=== PATIENT | male | born 1995 | race Caucasian/White ===

== ENCOUNTER 2018-01-29 10:14 | Emergency (ER) | payer OTHER ==
--- OUTSIDE RECORDS SUMMARY | 2018-01-29 10:16 | XMS REPORT | Clinical Summary ---
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 Outside Orders Central Scheduling Frank Ceballos MD convulsive epilepsy (HCC) (Primary Dx) after 01/28/2017 Social History Tobacco Use Types Packs/Day Years Used Date Never Assessed Sex Assigned at Date Recorded Not on file Last Filed Vital Signs Not on file Plan of Treatment Not on file Results EEG Awake & Drowsy (09/21/2017 9:45 AM) Specimen Performing Laboratory GE RIS Narrative DATE OF TEST: 09/21/17 DATE OF REPORT: 09/21/17 ACC: [id number] Start time: 9:06 Stop time: 9:37 ICD-10: R56.9 CPT Code: 77494 HISTORY: Mr Deutsch is a 22 y/o M with history of seizures MEDICATIONS: Keppra CONDITION OF REPORT: This is a digital EEG study, using the standard International 10-20 System for placement of 22 electrodes, including eye movement leads, and an EKG lead. DESCRIPTION OF RECORD: During the maximally alert state a 9-10 Hz posterior dominant rhythm was seen that was symmetric, reactive to eye opening and well regulated.More anteriorly, low voltage frontocentral beta predominated.Drowsiness was characterized by alpha attenuation and increased frontocentral theta. No sleep spindles captured.There are two instances of brief, sharply-contoured left temporal slowing. SIGNIFICANT VIDEO EVENTS: None SIGNIFICANT ELECTROCARDIOGRAM EVENTS: None Hyperventilation: Adequate hyperventilation for 3 minutes is associated with a slight build up of slowing symmetrically. Photic stimulation: No abnormal waveforms elicited with stimulation from 3-30 Hz. IMPRESSION: Normal awake and drowsy EEG CLINICAL CORRELATION: An EEG without epileptiform discharges does not exclude the possibility of epilepsy.The intermittent left temporal slowing, seen twice, was too infrequent and ill-defined to be of diagnostic significance; consider repeat EEG. Cassie Garcia MD, PhD Neurophysiology Fellow Cabrera Negron M.D., JOSE Professor of Neurology Director, [facility], [place] [facility] [place] [facility], [place] [facility] Procedure Note Interface, External Ris In - 09/21/2017 3:42 PM CDT DATE OF TEST: 09/21/17 DATE OF REPORT: 09/21/17 ACC: [id number] Start time: 9:06 Stop time: 9:37 ICD-10: R56.9 CPT Code: 31138 HISTORY: Mr Deutsch is a 22 y/o M with history of seizures MEDICATIONS: Keppra CONDITION OF REPORT: This is a digital EEG study, using the standard International 10-20 System for placement of 22 electrodes, including eye movement leads, and an EKG lead. DESCRIPTION OF RECORD: During the maximally alert state a 9-10 Hz posterior dominant rhythm was seen that was symmetric, reactive to eye opening and well regulated. More anteriorly, low voltage frontocentral beta predominated. Drowsiness was characterized by alpha attenuation and increased frontocentral theta. No sleep spindles captured. There are two instances of brief, sharply-contoured left temporal slowing. SIGNIFICANT VIDEO EVENTS: None SIGNIFICANT ELECTROCARDIOGRAM EVENTS: None Hyperventilation: Adequate hyperventilation for 3 minutes is associated with a slight build up of slowing symmetrically. Photic stimulation: No abnormal waveforms elicited with stimulation from 3-30 Hz. IMPRESSION: Normal awake and drowsy EEG CLINICAL CORRELATION: An EEG without epileptiform discharges does not exclude the possibility of epilepsy. The intermittent left temporal slowing, seen twice, was too infrequent and ill-defined to be of diagnostic significance; consider repeat EEG. Cassie Garcia MD, PhD Neurophysiology Fellow Cabrera Negron M.D., JOSE Professor of Neurology Director, [facility], [facility] after 01/28/2017
--- OUTSIDE RECORDS SUMMARY | 2018-01-29 10:16 | XMS REPORT ---
:1995 Author Organization [facility] Address [address] [place] [address] Care Team Providers Name Role Phone Unavailable Unavailable Unavailable Problems This patient has no known problems. Allergies, Adverse Reactions, Alerts This patient has no known allergies or adverse reactions. Medications This patient has no known medications. Results Test Description Test Time Test Comments Text Results Atomic Results Result Comments EEG AWAKE AND 2017-09-21 Reason for DATE OF TEST: 09/21/17 DATE DROWSY 15:42:00 exam:->Generalized OF REPORT: 09/21/17 ACC: convulsive epilepsy [id number] Start time: 9:06 Stop time: 9:37 ICD-10: R56.9 CPT Code: 65033 HISTORY: Mr Hart is a 22 y/o M with history [...] Cassie Garcia MD, PhD Neurophysiology Fellow Cabrera Dunn M.D., [facility] Professor of Neurology Director, [facility] [place] [facility], [facility]
[2018-01-29 10:59] LABS: Absolute Monocytes 0.8 K/uL (0.1-1.3); Absolute Neutrophil 7.8 K/uL (1.8-8.0); Basophils % 0.3 % (0-1.3); Eosinophils % 0.6 % (0-4.4); Hematocrit 48.1 % (39.6-49.0); Lymphocytes % 10.6 % (15.3-44.8); MCH 28.6 pg (27.0-35.0); MCV 82.5 fL (80-100); MPV 9.8 fL (7.6-11.3); Monocytes % 7.9 % (3.3-12.3); RBC Red Blood Cell Count 5.83 M/uL (4.33-5.43)
[2018-01-29] MEDS ORDERED: levETIRAcetam 500 MG TAB ONE (10:59)
[2018-01-29 11:07] LABS: Protime INR 1.01
--- NOTE | 2018-01-29 11:10 | RAD REPORT ---
EXAM DESCRIPTION: CT - CTHCSPWOC - 01/29/2018 10:55 am CLINICAL HISTORY: Seizure, fall, head injury, neck injury COMPARISON: None. TECHNIQUE: Axial 5 mm thick images of the head were obtained. Axial 2 mm thick images of the cervic al spine were obtained with sagittal and coronal reconstruction images generated and reviewed. All CT scans are performed using dose optimization technique as appropriate and may include automated exposure control or mA/KV adjustment according to patient size. FINDINGS: No intracranial hemorrhage, mass, edema or acute intracranial finding. No suspicion for acute infarct ion. No extra-axial fluid collections. Mastoid air cells are clear. Mucosal thickening with air-fluid levels in the maxillary sinuses. Remaining paranasal sinuses are clear. No globe or orbit abnormalit y seen. Cervical body height and alignment are normal. No disk space narrowing. No fracture or acute bony abn ormality. No paraspinal mass or hematoma. IMPRESSION: Negative CT head examination for acute or significant finding. Negative CT cervical spine examination for acute or significant finding. Bilateral maxillary sinusitis
[2018-01-29 11:23] LABS: ALT/SGPT 23 U/L (12-78); AST/SGOT 17 U/L (15-37); Albumin 3.8 g/dL (3.4-5.0); Alkaline Phosphatase 113 U/L (45-117); BUN Blood Urea Nitrogen 16 mg/dL (7-18); Bicarbonate 28 mmol/L (21-32); Bilirubin Direct < 0.1 mg/dL (0-0.2); Bilirubin Total 0.2 mg/dL (0.2-1.0); Glucose Level 105 mg/dL (74-106); Potassium 3.6 mmol/L (3.5-5.1); Protein, Total 7.6 g/dL (6.4-8.2); Sodium Level 142 mmol/L (136-145)
[2018-01-29] MEDS ORDERED: NA CHLORIDE 0.9% 1,000 ML ONE (14:23)
[2018-01-29 14:26] LABS: Barbiturates NEGATIVE (NEGATIVE); Benzodiazepines NEGATIVE (NEGATIVE); Cocaine NEGATIVE (NEGATIVE); METHAMPHETAM NEGATIVE (NEGATIVE); Methadone NEGATIVE (NEGATIVE); Opiates NEGATIVE (NEGATIVE); Phencyclidine NEGATIVE (NEGATIVE); THC Cannibis NEGATIVE (NEGATIVE)
[2018-01-29] MEDS ORDERED: ACETAMINOPHEN 325 MG TABLET ONE (14:27)
[2018-01-29 15:16] LABS: Urine Blood TRACE (NEG); Urine Glucose NEGATIVE (NEG); Urine Protein NEGATIVE (NEG); Urine pH 5.5 (5.0-7.0)
--- NOTE | 2018-01-29 15:21 | EDPHYS ---
Physician Documentation [facility] Name: Jaxson Deutsch Age: 22 yrs Sex: Male : 1995 Arrival Date: 01/29/2018 Time: 10:18 Bed 4 Private MD: ED Physician Rupal Rios HPI: 01/29 10:42 This 22 yrs old Male presents to ER via EMS with complaints of Seizure. jmm 10:42 The patient presents with a history of multiple seizures, a total of 2. Character of jmm seizure(s): Loss of consciousness: the patient experienced loss of consciousness, Motor activity: generalized, Incontinence: none, Apnea: the patient did not experience apnea, Circulation: the patient did not experience evidence of pulse disturbance. Seizure onset: this morning. This is a 22 year old male with a history of epilepsy that presents to the ED post ictal after a generalized seizure which occurred at approx 0900 according to the mother. The patient had a partial motor seizure yesterday which the patient recovered from easily according to the mother. Patient recently d/c keppra and is currently taking lamictal. Historical: - Allergies: 10:21 No Known Allergies; jl7 - Home Meds: 10:21 Lamictal Oral [Active]; jl7 - PMHx: 10:21 Seizures; jl7 - PSHx: 10:21 None; jl7 - Immunization history:: Adult Immunizations unknown. - Social history:: Smoking status: Patient/guardian denies using tobacco. - Ebola Screening: : No symptoms or risks identified at this time. ROS: 10:42 Constitutional: Negative for fever, chills, and weight loss, Cardiovascular: Negative jmm for chest pain, palpitations, and edema, Respiratory: Negative for shortness of breath, cough, wheezing, and pleuritic chest pain, Abdomen/GI: Negative for abdominal pain, nausea, vomiting, diarrhea, and constipation. 10:42 Neuro: Positive for seizure activity. 10:42 All other systems are negative. Exam: 10:42 Head/Face: atraumatic. Chest/axilla: Normal chest wall appearance and motion. jmm Cardiovascular: Regular rate and rhythm. No edema appreciated Respiratory: Normal respirations, no respiratory distress appreciated Abdomen/GI: Non distended, soft 10:42 Constitutional: The patient appears in no acute distress, alert, awake. 10:42 Skin: Appearance: Color: normal in color. 10:42 Neuro: post ictal in appearance. Vital Signs: 10:21 BP 144 / 108; Pulse 100; Resp 12; Pulse Ox 100% ; Pain 4/10; jl7 10:28 Temp 97.7(O); jl7 11:00 BP 139 / 97; Pulse 86; Resp 18 S; Pulse Ox 100% on R/A; jl7 11:30 BP 141 / 86; Pulse 78; Resp 16 S; Pulse Ox 100% on R/A; jl7 12:00 BP 142 / 98; Pulse 98; Resp 16 S; Pulse Ox 100% on R/A; jl7 12:30 BP 135 / 93; Pulse 90; Resp 16 S; Pulse Ox 100% on R/A; jl7 13:30 BP 132 / 97; Pulse 87; Resp 16 S; Pulse Ox 100% on R/A; jl7 14:51 BP 136 / 91; Pulse 92; Resp 16 S; Pulse Ox 100% on R/A; jl7 [place] Coma Score: 10:21 Eye Response: spontaneous(4). Verbal Response: oriented(5). Motor Response: obeys jl7 commands(6). Total: 15. MDM: 10:32 Patient medically screened. [facility] 15:18 Data reviewed: vital signs, nurses notes. Data interpreted: Pulse oximetry: on room air [facility] is 100 %. Interpretation: normal. ED course: I discussed the patient with Dr. Oliva whom advises to increased dose of lamictal to 150 mg at night and 100 mg during the day for 1 week then to increased to 150 mg BID. Patient is alert, non toxic in appearance, and at baseline on discharge. Given return precautions. Understood and agrees with the plan of care. . 01/29 10:39 Order name: Acetaminophen; Complete Time: 11:30 [facility] 01/29 10:39 Order name: Basic Metabolic Panel; Complete Time: 11:30 [facility] 01/29 10:39 Order name: CBC with Diff; Complete Time: 11:07 [facility] 01/29 10:39 Order name: ETOH Level; Complete Time: 11:30 [facility] 01/29 10:39 Order name: Hepatic Function; Complete Time: 11:30 [facility] 01/29 10:39 Order name: PT-INR; Complete Time: 11:18 [facility] 01/29 10:39 Order name: Ptt, Activated; Complete Time: 11:18 [facility] 01/29 10:39 Order name: Salicylate; Complete Time: 11:30 [facility] 01/29 10:39 Order name: Urine Drug Screen; Complete Time: 14:35 [facility] 01/29 10:39 Order name: CT Head C Spine; Complete Time: 11:18 [facility] 01/29 14:11 Order name: Urine Dipstick--Ancillary (enter results); Complete Time: 15:17 01/29 10:39 Order name: EKG; Complete Time: 10:39 [facility] 01/29 10:39 Order name: EKG - Nurse/Tech; Complete Time: 14:17 [facility] 01/29 10:39 Order name: IV Saline Lock; Complete Time: 14:17 [facility] 01/29 10:39 Order name: Labs collected and sent; Complete Time: 14:17 [facility] 01/29 10:39 Order name: Urine Dipstick-Ancillary (obtain specimen); Complete Time: 14:17 [facility] Administered Medications: 11:45 Drug: Keppra 1000 mg Route: PO; [facility] 14:43 Follow up: Response: No adverse reaction 7 14:30 Drug: NS 0.9% 1000 ml Route: IV; Rate: 1 bolus; Site: left antecubital; jl7 15:15 Follow up: IV Status: Completed infusion jl7 14:35 Drug: Tylenol 650 mg Route: PO; jl7 15:00 Follow up: Response: No adverse reaction; Pain is decreased jl7 Disposition: 18:18 Co-signature as Attending Physician, Rupal Rios MD. ca2 Disposition: 01/29/18 15:20 Discharged to Home. Impression: Epilepsy and recurrent seizures. - Condition is Stable. - Discharge Instructions: Epilepsy. - Prescriptions for Klonopin 1 mg Oral Tablet - take 1 tablet by ORAL route every 12 hours As needed; 20 tablet. - Medication Reconciliation Form, Thank You Letter, Antibiotic Education, Prescription Opioid Use form. - Follow up: Private Physician; When: 2 - 3 days; Reason: Recheck today's complaints, Continuance of care, Re-evaluation by your physician. - Notes: PLEASE INCREASE DOSE OF LAMICTAL TO - 100 MG IN THE MORNING AND 150 MG AT NIGHT FOR 1 WEEK - THEN INCREASE DOSE TO 150 MG TWICE A DAY - YOU CAN ADMINISTER KLONPIN IF THE PATIENT HAS A SEIZURE LONGER THAN 3 MINUTES. Signatures: Dispatcher [employer] Kin Walls PA PA jmm Leal, Jahala, RN RN jl7 Rupal Rios MD MD ma2 Corrections: (The following items were deleted from the chart) 15:37 15:20 01/29/2018 15:20 Discharged to Home. Impression: Epilepsy and recurrent seizures. jl7 Condition is Stable. Forms are Medication Reconciliation Form, Thank You Letter, Antibiotic Education, Prescription Opioid Use. Follow up: Private Physician; When: 2 - 3 days; Reason: Recheck today's complaints, Continuance of care, Re-evaluation by your physician. yolie
--- NOTE | 2018-01-29 15:21 | ER ---
Nurse's Notes [facility] Name: Jaxson Deutsch Age: 22 yrs Sex: Male : 1995 Arrival Date: 01/29/2018 Time: 10:18 Bed 4 Private MD: Diagnosis: Epilepsy and recurrent seizures Presentation: 01/29 10:18 Presenting complaint: EMS states: Pt sitting down eating breakfast, had a seizure, fell jl7 and hit the back of his head. Transition of care: patient was not received from another setting of care. Onset of symptoms was January 29, 2018. Risk Assessment: Do you want to hurt yourself or someone else? Patient reports no desire to harm self or others. Initial Sepsis Screen: Does the patient meet any 2 criteria? No. Patient's initial sepsis screen is negative. Does the patient have a suspected source of infection? No. Patient's initial sepsis screen is negative. Care prior to arrival: IV initiated. 20 GA, in the left antecubital area. 10:18 Method Of Arrival: EMS: [facility] 10:18 Acuity: JOLIE 3 jl7 Triage Assessment: 10:21 General: Appears in no apparent distress. uncomfortable, Behavior is cooperative, jl7 drowsy. Pain: Complains of pain in occipital area. EENT: No signs and/or symptoms were reported regarding the EENT system. Neuro: Level of Consciousness is awake, alert, obeys commands, Oriented to person, place, time, situation. Cardiovascular: Patient's skin is warm and dry. Respiratory: Airway is patent Respiratory effort is even, unlabored, Respiratory pattern is regular, symmetrical. Derm: Skin is pink, warm \T\ dry. Historical: - Allergies: 10:21 No Known Allergies; jl7 - Home Meds: 10:21 Lamictal Oral [Active]; jl7 - PMHx: 10:21 Seizures; jl7 - PSHx: 10:21 None; jl7 - Immunization history:: Adult Immunizations unknown. - Social history:: Smoking status: Patient/guardian denies using tobacco. - Ebola Screening: : No symptoms or risks identified at this time. Screenin:23 Abuse screen: Denies threats or abuse. Denies injuries from another. Nutritional jl7 screening: No deficits noted. Tuberculosis screening: No symptoms or risk factors identified. Fall Risk Secondary diagnosis (15 points) seizures, IV access (20 points). Total Patel Fall Scale indicates Low Risk Score (25-44 pts). Fall prevention measures have been instituted. Side Rails Up X 2 Placed close to Nursing Station Frequent Obs/Assesments occuring Family Present and informed to notify staff if they need to leave bedside As available Patient and Family Educated on Fall Prevention Program and strategies. Assessment: 10:23 General: See triage assessment. Pt reports changing seizure medications approximately 2 jl7 weeks ago. Mom reports possible absence seizures last night.. 11:30 Reassessment: Patient and/or family updated on plan of care and expected duration. Pain jl7 level reassessed. Patient is alert, oriented x 3, equal unlabored respirations, skin warm/dry/pink. 12:30 Reassessment: Patient and/or family updated on plan of care and expected duration. Pain jl7 level reassessed. Patient is alert, oriented x 3, equal unlabored respirations, skin warm/dry/pink. 13:30 Reassessment: Patient and/or family updated on plan of care and expected duration. Pain jl7 level reassessed. Patient is alert, oriented x 3, equal unlabored respirations, skin warm/dry/pink. 14:28 Reassessment: Patient appears in no apparent distress at this time. Patient and/or jl7 family updated on plan of care and expected duration. Pain level reassessed. Patient is alert, oriented x 3, equal unlabored respirations, skin warm/dry/pink. Patient states feeling better. Vital Signs: 10:21 BP 144 / 108; Pulse 100; Resp 12; Pulse Ox 100% ; Pain 4/10; jl7 10:28 Temp 97.7(O); jl7 11:00 BP 139 / 97; Pulse 86; Resp 18 S; Pulse Ox 100% on R/A; jl7 11:30 BP 141 / 86; Pulse 78; Resp 16 S; Pulse Ox 100% on R/A; jl7 12:00 BP 142 / 98; Pulse 98; Resp 16 S; Pulse Ox 100% on R/A; jl7 12:30 BP 135 / 93; Pulse 90; Resp 16 S; Pulse Ox 100% on R/A; jl7 13:30 BP 132 / 97; Pulse 87; Resp 16 S; Pulse Ox 100% on R/A; jl7 14:51 BP 136 / 91; Pulse 92; Resp 16 S; Pulse Ox 100% on R/A; jl7 [place] Coma Score: 10:21 Eye Response: spontaneous(4). Verbal Response: oriented(5). Motor Response: obeys jl7 commands(6). Total: 15. ED Course: 10:18 Patient arrived in ED. jl7 10:20 Triage completed. jl7 10:21 Kin Ambrosio PA is PHCP. [facility] 10:21 Rupal Rios MD is Attending Physician. m 10:21 Arm band placed on right wrist. jl7 10:23 Patient has correct armband on for positive identification. Placed in gown. Bed in low jl7 position. Call light in reach. Side rails up X 1. Seizure precautions initiated. cat wagon operator on. Pulse ox on. NIBP on. 10:23 Maintain EMS IV. Dressing intact. Good blood return noted. Site clean \T\ dry. Gauge \T\ jl 7 site: 20 left AC. 10:28 Tien Davidson RN is Primary Nurse. jl7 10:54 CT completed. Patient moved to CT via stretcher. Patient moved back from CT. cw1 10:55 CT Head C Spine In Process Unspecified. EDMS 14:16 sent to lab. Urine collected: clean catch specimen, clear. mb4 14:29 EKG done, by ED staff, reviewed by Kin VICENTE. jl7 15:36 No provider procedures requiring assistance completed. IV discontinued, intact, jl7 bleeding controlled, No redness/swelling at site. Pressure dressing applied. Administered Medications: 11:45 Drug: Keppra 1000 mg Route: PO; jl7 14:43 Follow up: Response: No adverse reaction jl7 14:30 Drug: NS 0.9% 1000 ml Route: IV; Rate: 1 bolus; Site: left antecubital; jl7 15:15 Follow up: IV Status: Completed infusion jl7 14:35 Drug: Tylenol 650 mg Route: PO; jl7 15:00 Follow up: Response: No adverse reaction; Pain is decreased jl7 Outcome: 15:20 Discharge ordered by . [facility] 15:36 Discharged to home ambulatory, with family. jl7 15:36 Condition: stable 15:36 Discharge instructions given to patient, family, Instructed on discharge instructions, follow up and referral plans. medication usage, Demonstrated understanding of instructions, follow-up care, medications, Prescriptions given X 1. 15:37 Patient left the ED. jl7 Signatures: Dispatcher [employer] EDKin Brooks PA PA jmm Woodley, Crystal cw1 Tien Davidson RN RN jl7 Jessika Varela mb4
--- NOTE | 2018-01-30 06:52 | EKG ---
Test Date: 2018-01-29 Test Time: 14:26:53 Educational Interpreter: ARIANNA MEASUREMENT RESULTS: Intervals: Rate: 92 LA: 122 QRSD: 96 QT: 370 QTc: 457 Bertrand: P: 75 LA: 122 QRS: 87 T: 62 INTERPRETIVE STATEMENTS: Normal sinus rhythm Normal ECG No previous ECG available for comparison Electronically Signed On 01-30-18 06:51:02 CDT by Shahab Marx
== END 2018-01-29 15:37 | disposition home or self-care (01) ==
LOC: ER 10:14
DX: G40.802 Other epilepsy, not intractable, without status epilepticus (principal)
CPT/HCPCS: 36415; 70450; 72125; 80048; 80076; 80307; 80320; 80329; 81003; 85025; 85610; 85730; 93005; 96360; 99285; J7030

== ENCOUNTER 2019-11-02 18:42 | Emergency (ER) | payer OTHER ==
--- OUTSIDE RECORDS SUMMARY | 2019-11-02 18:44 | XMS REPORT | Summary of Care ---
:1995 Author Organization [facility] Address [address] [place] [address] Care Team Providers Name Role Phone Edmundo Bearden MD Primary Care Provider Reason for Visit Reason Comments Assessment Encounter Details Date Type Department Care Team Description 09/05/2019 Telephone [facility] Pediatric and Marcellus Gill MD Assessment Adult Primary Care- [address] [place] [address] [place] [address] , [address] [place] [address] Allergies No Known Allergiesdocumented as of this encounter (statuses as of 09/05/2019) Medications Medication Sig Dispensed Refills Start Date End Date Status clonazePAM 1 mg tablet Take 1 mg by 0 Active mouth as needed (seizures). levETIRAcetam (KEPPRA) Take 375 mg by 0 Active 250 mg tablet mouth 2 (two) times daily. lamoTRIgine (LAMICTAL) Take 100 mg by 0 Active 100 mg tablet mouth daily. lamoTRIgine (LAMICTAL Take by mouth. 0 Active XR) 250 mg TR24 selenium sulfide 2.5 % Apply to 120 mL 5 03/28/2019 Active lotionIndications: area(s) as Tinea versicolor needed for Rash. atomoxetine (STRATTERA) Take 1 capsule 60 capsule 12 07/27/2019 Active 60 mg by mouth 2 (two) capsuleIndications: times daily. 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 documented as of this encounter Last Filed Vital Signs Not on filedocumented in this encounter Plan of Treatment Date Type Specialty Care Team Description 01/25/2020 Office Visit Family Medicine Suleiman, Marcellus stack MD [address] [place] [phone] Health Maintenance Due Date Last Done Comments VARICELLA VACCINES (1 of 2 - 2-dose 01/31/1997 childhood series) MENINGOCOCCAL B VACCINES (1 of 2 - 01/31/2006 Risk Bexsero 2-dose series) DTaP,Tdap,and Td Vaccines (1 - 01/31/2007 Tdap) INFLUENZA VACCINE (#1) 2019 HPV VACCINES Aged Out No longer eligib le based on patient's age to complete this topic PNEUMOCOCCAL 0-64 YEARS COMBINED Aged Out No longer eligible based on SERIES patient's age to complete this topic documented as of this encounter Results Not on filedocumented in this encounter Insurance Payer Benefit Plan / Subscriber ID Effective Dates Phone Addre ss Type Group [facility] [id number] 2019-Present O HMO documented as of this encounter
--- OUTSIDE RECORDS SUMMARY | 2019-11-02 18:44 | XMS REPORT | Summary of Care ---
:1995 Author Organization [facility] Address [address] [place] [address] Care Team Providers Name Role Phone Edmundo Bearden MD Primary Care Provider Reason for Visit Reason Comments Assessment Encounter Details Date Type Department Care Team Description 08/31/2019 Telephone [facility] Pediatric and Marcellus Gill MD Assessment Adult Primary Care- [address] [place] [address] [place] [address] , [address] [place] [address] Allergies No Known Allergiesdocumented as of this encounter (statuses as of 08/31/2019) Medications Medication Sig Dispensed Refills Start Date [...] as of this encounter (statuses as of 08/31/2019) Active Problems Problem Noted Date 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
--- OUTSIDE RECORDS SUMMARY | 2019-11-02 18:44 | XMS REPORT | Continuity of Care Document ---
:1995 Author Organization [facility] t Address [address] [place] [address] Care Team Providers Name Role Phone Suleiman RINCON, Edmundo Primary Care Physician Unavailable Edmundo Bearden MD Attending Clinician Doctor Unassigned, Name Attending Clinician Unavailable Problems This patient has no known problems. Allergies, Adverse Reactions, Alerts This patient has no known allergies or adverse reactions. Social History Social Habit Start Date Stop Date Quantity Comments Source Sex Assigned At [facility] Medications This patient has no known medications. Procedures This patient has no known procedures. Encounters Start End Encounter Admission Attending Care Care Encounter Source Date/Time Date/Time Type Type Clinicians Facility Department ID 2019-09-18 2019-09-18 [facility] [id number] 00:00:00 00:00:00 Marcellus Renee [id number] [place] [id number] Profkailash [phone] [address] 2019-09-17 2019-09-17 Telephone [facility] [id number] 00:00:00 00:00:00 Marcellus Renee [id number] [place] [id number] Anh [phone] [address] 2019-09-05 2019-09-05 Telephone [facility] [id number] 00:00:00 00:00:00 Marcellus Renee [id number] Edmundo Abbott [id number] Professio [phone] nal [address] [place] [address] 2019-08-31 2019-08-31 Telephone RISSA Bearden [id number] 00:00:00 00:00:00 Marcellus Renee [id number] Edmundo Abbott [id number] Professio [phone] [address] 2019-07-27 2019-07-27 Office RISSA Bearden [id number] 09:09:04 09:24:04 Visit [facility] [id number] Edmundo Renee [id number] Professio [phone] nal 044 Office [facility] 2019-07-27 2019-07-27 Orders Doctor TADEO [id number] 00:00:00 00:00:00 Only Unassigned, BALDO [id number] [facility] [phone] [id number] Results Test Description Test Time Test Comments Results Result [facility] e Comments EEG AWAKE AND 2017-09-21 Reason for DATE OF TEST: 09/21/17 DROWSY 15:42:00 exam:->Generaliz DATE OF REPORT: 09/21/17 ed convulsive ACC: [id number] EEG: epilepsy Start time: 9:06 Stop time: 9:37 ICD-10: R56.9 CPT Code: 34929 HISTORY: Mr Hart is a 22 y/o [...] MD, PhD Neurophysiology Fellow Cabrera Dunn M.D., [facility] Professor of Neurology Director, [facility] Epilepsy [place], [facility] Neurophysiology Lab
--- OUTSIDE RECORDS SUMMARY | 2019-11-02 18:44 | XMS REPORT | Clinical Summary ---
:1995 Author Organization [facility] Address [address] [place] [address] Care Team Providers Name Role Phone Edmundo Bearden MD Primary Care Provider Unavailable Allergies Not on File Medications Not on file Active Problems Not on file Social History Tobacco Use Types Packs/Day Years Used Date Never Assessed Sex Assigned at Date Recorded Not on file Job Start Date Occupation Industry Not on file Not on file Not on file Travel History Travel Start Travel End No recent travel history available. Last Filed Vital Signs Not on file Plan of Treatment Not on file Results Not on fileafter 11/01/2018 Insurance Payer Benefit Plan / Group Subscriber ID Type Phone A ddress [employer] - [employer]GD CARE AET[employer] PPO [facility] NAP xxxxxxxxx PPO
--- OUTSIDE RECORDS SUMMARY | 2019-11-02 18:45 | XMS REPORT | Summary of Care ---
:1995 Author Organization [facility] Address [address] [place] [address] Care Team Providers Name Role Phone Edmundo Bearden MD Primary Care Provider Reason for Visit Reason Comments Assessment Encounter Details Date Type Department Care Team Description 09/17/2019 Telephone [facility] Pediatric and Marcellus Gill MD Assessment Adult Primary Care- [address] [place] [address] [place] [address] , [address] [place] [address] Allergies No Known Allergiesdocumented as of this encounter (statuses as of 09/18/2019) Medications Medication Sig Dispensed Refills Start Date [...] as of this encounter (statuses as of 09/18/2019) Active Problems Problem Noted Date 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 Allergic rhinitis due to pollen 04/07/2015 Seizures, 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/2015 documented as of this encounter (statuses as of 09/18/2019) Social History Tobacco Use Types Packs/Day Years [...] Team Description 01/25/2020 Office Visit Family Medicine Marcellus Bearden MD [address] [place] [address] [phone] Health Maintenance Due Date Last Done Comments VARICELLA VACCINES (1 of 2 - 2-dose 01/31/1997 childhood series) MENINGOCOCCAL B VACCINES (1 of 2 - 01/31/2006 Risk Bexsero 2-dose series) DTaP,Tdap,and Td Vaccines (1 - 01/31/2007 Tdap) INFLUENZA VACCINE (Season Ended) 2020 HPV VACCINES Aged Out No longer eligib le based on patient's age to complete this topic PNEUMOCOCCAL 0-64 YEARS COMBINED Aged Out No longer eligible based on SERIES patient's age to complete this topic documented as of this encounter Results Not on filedocumented in this encounter Insurance Payer Benefit Plan / Subscriber ID Effective Dates Phone Addre ss Type Group [facility] [id number] 2019-Present O HMO documented as of this encounter
--- OUTSIDE RECORDS SUMMARY | 2019-11-02 18:45 | XMS REPORT | Summary of Care ---
:1995 Author Organization [facility] Address [address] [place] [address] Care Team Providers Name Role Phone Edmundo Bearden MD Primary Care Provider Reason for Visit Reason Comments Assessment Encounter Details Date Type Department Care Team Description 09/18/2019 Telephone [facility] Pediatric and Marcellus Gill MD Assessment Adult Primary Care- [address] [place] [address] [place] [address] , [address] [place] [address] Allergies No Known Allergiesdocumented as of [...] Office Visit Family Medicine Marcellus Bearden MD [address] [place] [address] [phone] Health Maintenance Due Date Last Done [...] Effective Dates Phone Addre ss Type Group [facility] [id number] 2019-Present O HMO documented as of this encounter
[2019-11-02] MEDS ORDERED: LEVETIRACETAM 500 MG/5 ML VIAL IV ONE (19:35)
[2019-11-02] MEDS ORDERED: NA CHLORIDE 0.9% 250 ML ONE (19:35)
[2019-11-02 19:53] LABS: Absolute Lymphocytes (CBC) 1.1 K/uL (0.7-4.9); Basophils % 0.2 % (0-1.3); Hematocrit 45.1 % (39.6-49.0); Lymphocytes % 11.6 % (15.3-44.8); RBC Red Blood Cell Count 5.36 M/uL (4.33-5.43)
[2019-11-02 19:55] LABS: Protime INR 1.03
[2019-11-02 20:14] LABS: ALT/SGPT 30 U/L (12-78); AST/SGOT 19 U/L (15-37); Albumin 3.9 g/dL (3.4-5.0); Alkaline Phosphatase 98 U/L (45-117); BUN Blood Urea Nitrogen 12 mg/dL (7-18); Bicarbonate 28 mmol/L (21-32); Bilirubin Direct < 0.1 mg/dL (0-0.2); Bilirubin Total 0.4 mg/dL (0.2-1.0); CKMB Creatine Kinase MB 2.2 ng/mL (0.3-3.6); Creatine Phosphokinase 145 U/L (39-308); Glucose Level 117 mg/dL (74-106); Lipase 72 U/L (73-393); Magnesium 2.2 mg/dL (1.8-2.4); Protein, Total 7.4 g/dL (6.4-8.2); Sodium Level 138 mmol/L (136-145); Troponin (Emerg Dept Use Only) < 0.02 ng/mL (0.0-0.045)
[2019-11-02 21:07] LABS: Barbiturates NEGATIVE (NEGATIVE); Benzodiazepines NEGATIVE (NEGATIVE); Cocaine NEGATIVE (NEGATIVE); METHAMPHETAM NEGATIVE (NEGATIVE); Methadone NEGATIVE (NEGATIVE); Opiates NEGATIVE (NEGATIVE); Phencyclidine NEGATIVE (NEGATIVE); THC Cannibis NEGATIVE (NEGATIVE)
[2019-11-02 21:23] LABS: Urine Blood NEGATIVE (NEG); Urine Glucose NEGATIVE (NEG); Urine Protein 2+ (NEG); Urine Specific Gravity >1.030 (1.005-1.030); Urine pH 5.5 (5.0-7.0)
--- NOTE | 2019-11-02 22:23 | ER ---
Nurse's Notes [facility] Name: Jaxson Deutsch Age: 24 yrs Sex: Male : 1995 Arrival Date: 11/02/2019 Time: 18:45 Bed 3 Private MD: Diagnosis: Epilepsy and recurrent seizures Presentation: 11/01 18:45 Chief complaint: EMS states: Pt had witnessed seizure while at work, hx of seizures, ph last seizure approx 1 year ago, post-ictal on scene, 2 mg Ativan given IV, pt awake but drowsy upon arrival to ED, c/o headache, states that he did take his medication this morning, takes Keppra. Coronavirus screen: Patient denies a cough. Patient denies shortness of breath or difficulty breathing. Patient denies measured and/or subjective temperature greater than 100.4F prior to today's visit. Patient denies travel on a cruise ship or to a country the [facility] currently lists as an affected area. Patient denies contact with known and/or suspected case of COVID-19. Ebola Screen: No symptoms or risks identified at this time. Initial Sepsis Screen: Does the patient meet any 2 criteria? No. Patient's initial sepsis screen is negative. Does the patient have a suspected source of infection? No. Patient's initial sepsis screen is negative. Risk Assessment: Do you want to hurt yourself or someone else? Patient reports no desire to harm self or others. Onset of symptoms was November 02, 2019. 18:45 Method Of Arrival: EMS: [facility] ph 18:45 Acuity: JOLIE 3 ph Historical: - Allergies: 18:50 No Known Drug Allergies; ph - Home Meds: 18:50 Keppra Oral [Active]; ph - PMHx: 18:50 Seizures; ph - PSHx: 18:50 None; ph - Immunization history:: Adult Immunizations unknown. - Social history:: Smoking status: Patient denies any tobacco usage or history of. Screenin:51 Abuse screen: Denies threats or abuse. Denies injuries from another. Nutritional ph screening: No deficits noted. Tuberculosis screening: No symptoms or risk factors identified. Fall Risk Fall in past 12 months (25 points). Secondary diagnosis (15 points) seizures, IV access (20 points). Ambulatory Aid- None/Bed Rest/Nurse Assist (0 pts). Gait- Normal/Bed Rest/Wheelchair (0 pts) Mental Status- Oriented to own ability (0 pts). Total Patel Fall Scale indicates High Risk Score (45 or more points). Fall prevention measures have been instituted. Side Rails Up X 2 Placed Close to Nursing Station Frequent Obs/Assessments Occuring As available patient and family educated on Fall Prevention Program and Strategies. Assessment: 18:51 General: Appears in no apparent distress. comfortable, slender, well groomed, Behavior ph is calm, cooperative, appropriate for age. Pain: Complains of pain in head. Neuro: Level of Consciousness is awake, alert, obeys commands, Oriented to person, place, time, situation, Reports headache Seizure activity reported prior to arrival. Patient is post-ictal at this time. Cardiovascular: Capillary refill < 3 seconds in bilateral fingers Patient's skin is warm and dry. Respiratory: Airway is patent Respiratory effort is even, labored, Respiratory pattern is regular, symmetrical. GI: No signs and/or symptoms were reported involving the gastrointestinal system. Derm: Skin is intact, is fragile, Skin is pink, warm \T\ dry. Musculoskeletal: Circulation, motion, and sensation intact. Range of motion: intact in all extremities. 19:49 General: Appears in no apparent distress. comfortable, well groomed, Behavior is rr5 cooperative, appropriate for age, drowsy. Pain: Denies pain. Neuro: Level of Consciousness is awake, alert, obeys commands, Oriented to person, place, time, situation, Reports headache episode of seizure stated by infusion nurse. Cardiovascular: Capillary refill < 3 seconds Patient's skin is warm and dry. Respiratory: Airway is patent Respiratory effort is even, unlabored, Respiratory pattern is regular, symmetrical. GI: No signs and/or symptoms were reported involving the gastrointestinal system. : No signs and/or symptoms were reported regarding the genitourinary system. EENT: Eyes perrla. Derm: Skin is intact, is healthy with good turgor, Skin temperature is warm. Musculoskeletal: Circulation, motion, and sensation intact. Capillary refill < 3 seconds. 21:05 Reassessment: Patient appears in no apparent distress at this time. Patient is alert, rr5 oriented x 3, equal unlabored respirations, skin warm/dry/pink. drowsy, GCS 15/15. vitally stable. awaiting for results. 21:40 Reassessment: Patient appears in no apparent distress at this time. Patient is alert, rr5 oriented x 3, equal unlabored respirations, skin warm/dry/pink. tried to walk around the room patient feels dizzy and sleepy. 22:03 Reassessment: awaiting for ED provider review. rr5 22:17 Reassessment: reassess by ED provider for discharge. rr5 22:40 Reassessment: Patient appears in no apparent distress at this time. Patient is alert, rr5 oriented x 3, equal unlabored respirations, skin warm/dry/pink. discharge instruction given and explained without complaints made. Vital Signs: 18:45 BP 131 / 79; Pulse 98; Resp 18; Temp 97.3; Pulse Ox 99% on R/A; Weight 86.18 kg; Height ph 6 ft. 0 in. (182.88 cm); 19:52 BP 129 / 84; Pulse 105; Resp 16; Pulse Ox 99% ; rr5 20:50 BP 121 / 85; Pulse 95; Resp 17; Pulse Ox 99% ; rr5 21:45 BP 124 / 69; Pulse 86; Resp 13; Pulse Ox 99% on R/A; rv 22:40 BP 121 / 75; Pulse 80; Resp 16; Temp 98; Pulse Ox 99% ; rr5 18:45 Body Mass Index 25.77 (86.18 kg, 182.88 cm) ph ED Course: 18:45 Patient arrived in ED. ph 18:48 Triage completed. ph 18:50 Arm band placed on Patient placed in an exam room, on a stretcher, on pulse oximetry. ph 18:52 Patient has correct armband on for positive identification. Bed in low position. Call ph light in reach. Side rails up X2. Seizure precautions initiated. Pulse ox on. NIBP on. Warm blanket given. 19:04 Dom Carney MD is Attending Physician. tw4 19:13 Nabeel Arevalo RN is Primary Nurse. rr5 19:20 youth nutritional monitor on. rr5 19:20 Maintain EMS IV. Dressing intact. Good blood return noted. Site clean \T\ dry. Gauge \T\ rr 5 site: G20 left AC. 20:45 Urine collected: clean catch specimen, clear. rr5 22:22 Rufino Hui MD is Referral Physician. tw4 22:22 Mario Alberto Marsh MD is Referral Physician. tw4 22:40 No provider procedures requiring assistance completed. IV discontinued, intact, rr5 bleeding controlled, No redness/swelling at site. Pressure dressing applied. Administered Medications: 19:43 Drug: Keppra 1000 mg Route: IV; Rate: bolus; Site: left antecubital; rr5 20:07 Follow up: Response: No adverse reaction; IV Status: Completed infusion; IV Intake: rr5 250ml Intake: 20:07 IV: 250ml; Total: 250ml. rr5 Outcome: 22:23 Discharge ordered by . tw4 22:40 Discharged to home via wheelchair, with family. rr5 22:40 Condition: stable 22:40 Discharge instructions given to family, Instructed on discharge instructions, follow up and referral plans. Demonstrated understanding of instructions, follow-up care. 22:41 Patient left the ED. rr5 Signatures: Roxanne Zepeda RN RN Dom Chanel MD MD tw4 Eliud Matamoros RN RN Nabeel Lyn RN RN rr5
--- NOTE | 2019-11-02 22:23 | EDPHYS ---
Physician Documentation [facility] Name: Jaxson Deutsch Age: 24 yrs Sex: Male : 1995 Arrival Date: 11/02/2019 Time: 18:45 Bed 3 Private MD: ED Physician Dom Carney HPI: 11/01 20:14 This 24 yrs old Male presents to ER via EMS with complaints of Seizure. tw4 20:14 The patient presents after having a single isolated seizure, that lasted an unknown tw4 period of time. Character of seizure(s): Loss of consciousness: the patient experienced loss of consciousness, Motor activity: generalized, Incontinence: Apnea: it is not know whether or not the patient experienced apnea, Circulation: it is unknown whether or not the patient experienced a disturbance in pulse. Seizure onset: today. Context: the seizure(s) was witnessed, by co-worker(s), occurred at work. Seizure Hx: Original onset: 6 year(s) ago, Last seizure: The patient's last seizure was approximately 1 year(s) ago. Associated injury: The patient did not suffer any apparent associated injury. The patient has not experienced similar symptoms in the past. 20:14 Unable to obtain HPI due to POSTICTAL. HISTORY PER EMS AND MOTHER. PT RECEIVED ATIVAN tw4 [employer]. Historical: - Allergies: 18:50 No Known Drug Allergies; ph - Home Meds: 18:50 Keppra Oral [Active]; ph - PMHx: 18:50 Seizures; ph - PSHx: 18:50 None; ph - Immunization history:: Adult Immunizations unknown. - Social history:: Smoking status: Patient denies any tobacco usage or history of. ROS: 20:14 Constitutional: Negative for fever, chills, and weight loss, Eyes: Negative for injury, tw4 pain, redness, and discharge, Cardiovascular: Negative for chest pain, palpitations, and edema, Respiratory: Negative for shortness of breath, cough, wheezing, and pleuritic chest pain, Abdomen/GI: Negative for abdominal pain, nausea, vomiting, diarrhea, and constipation, Back: Negative for injury and pain, MS/Extremity: Negative for injury and deformity, Skin: Negative for injury, rash, and discoloration, Neuro: Negative for headache, weakness, numbness, tingling, and seizure. Exam: 20:14 Constitutional: This is a well developed, well nourished patient who is awake, alert, tw4 and in no acute distress. Head/Face: Normocephalic, atraumatic. Chest/axilla: Normal chest wall appearance and motion. Nontender with no deformity. No lesions are appreciated. Cardiovascular: Regular rate and rhythm with a normal S1 and S2. No gallops, murmurs, or rubs. Normal PMI, no JVD. No pulse deficits. Respiratory: Lungs have equal breath sounds bilaterally, clear to auscultation and percussion. No rales, rhonchi or wheezes noted. No increased work of breathing, no retractions or nasal flaring. Abdomen/GI: Soft, non-tender, with normal bowel sounds. No distension or tympany. No guarding or rebound. No evidence of tenderness throughout. Back: No spinal tenderness. No costovertebral tenderness. Full range of motion. MS/ Extremity: Pulses equal, no cyanosis. Neurovascular intact. Full, normal range of motion. Neuro: Awake and alert, GCS 15, oriented to person, place, time, and situation. Cranial nerves II-XII grossly intact. Motor strength 5/5 in all extremities. Sensory grossly intact. Cerebellar exam normal. Normal gait. Vital Signs: 18:45 BP 131 / 79; Pulse 98; Resp 18; Temp 97.3; Pulse Ox 99% on R/A; Weight 86.18 kg; Height ph 6 ft. 0 in. (182.88 cm); 19:52 BP 129 / 84; Pulse 105; Resp 16; Pulse Ox 99% ; rr5 20:50 BP 121 / 85; Pulse 95; Resp 17; Pulse Ox 99% ; rr5 21:45 BP 124 / 69; Pulse 86; Resp 13; Pulse Ox 99% on R/A; rv 22:40 BP 121 / 75; Pulse 80; Resp 16; Temp 98; Pulse Ox 99% ; rr5 18:45 Body Mass Index 25.77 (86.18 kg, 182.88 cm) ph MDM: 19:04 Patient medically screened. tw4 20:14 Data reviewed: vital signs, nurses notes. Data interpreted: Pulse oximetry: tw4 Interpretation: normal. Counseling: I had a detailed discussion with the patient and/or guardian regarding: the historical points, exam findings, and any diagnostic results supporting the discharge/admit diagnosis. Special discussion: I discussed with the patient/guardian in detail that at this point there is no indication for admission to the hospital. It is understood, however, that if the symptoms persist or worsen the patient needs to return immediately for re-evaluation. 22:22 Differential diagnosis: cerebral vascular accident, seizure. 11/01 19:13 Order name: UDS; Complete Time: 21:18 11/01 21:19 Interpretation: Within normal limits. 11/01 19:13 Order name: Basic Metabolic Panel; Complete Time: 21:18 11/01 21:18 Interpretation: Normal except: GLUC 117; GFR 85. 11/01 19:13 Order name: CBC with Diff; Complete Time: 21:18 11/01 21:18 Interpretation: Normal except: DANG% 77.4; LYM% 11.6. 11/01 19:13 Order name: Ckmb; Complete Time: 21:18 11/01 21:19 Interpretation: Within normal limits: CKMB 2.2. 11/01 19:13 Order name: CPK; Complete Time: 21:18 11/01 21:20 Interpretation: Within normal limits: CPK 145. 11/01 19:13 Order name: Hepatic Function; Complete Time: 21:18 11/01 21:20 Interpretation: Within normal limits. 11/01 19:13 Order name: Lipase; Complete Time: 21:18 11/01 21:19 Interpretation: LIP 72. 11/01 19:13 Order name: Magnesium; Complete Time: 21:18 11/01 21:20 Interpretation: Within normal limits: MG 2.2. 11/01 19:13 Order name: Protime (+inr); Complete Time: 21:18 11/01 21:20 Interpretation: Within normal limits: PT 12.1. 11/01 19:13 Order name: Troponin (emerg Dept Use Only); Complete Time: 21:18 11/01 21:20 Interpretation: Within normal limits: TROPED < 0.02. 11/01 19:13 Order name: Cardiac monitoring; Complete Time: 19:42 11/01 20:40 Order name: Urine Dipstick--Ancillary (enter results); Complete Time: 21:26 tt3 11/01 21:26 Interpretation: Normal except: USPGR >1.030; UPROT 2+. tw4 11/01 19:13 Order name: Labs collected and sent; Complete Time: 19:42 tw4 11/01 19:13 Order name: NPO; Complete Time: 19:43 tw4 11/01 19:13 Order name: O2 Per Protocol; Complete Time: 19:42 tw4 11/01 19:13 Order name: O2 Sat Monitoring; Complete Time: 19:43 tw4 11/01 19:13 Order name: Urine Dipstick-Ancillary (obtain specimen); Complete Time: 20:47 tw4 Administered Medications: 19:43 Drug: Keppra 1000 mg Route: IV; Rate: bolus; Site: left antecubital; rr5 20:07 Follow up: Response: No adverse reaction; IV Status: Completed infusion; IV Intake: rr5 250ml Disposition: 11/02/19 22:23 Discharged to Home. Impression: Epilepsy and recurrent seizures. - Condition is Stable. - Discharge Instructions: Seizure, Adult. - Medication Reconciliation Form, Thank You Letter, Antibiotic Education, Prescription Opioid Use, Work release form form. - Follow up: Private Physician; When: Upon discharge from the Emergency Department; Reason: Recheck today's complaints, Continuance of care, Re-evaluation by your physician. Follow up: Rufino Hui MD; When: Upon discharge from the Emergency Department; Reason: Recheck today's complaints, Continuance of care, Re-evaluation by your physician. Follow up: Mario Alberto Marsh MD; When: Upon discharge from the Emergency Department; Reason: Recheck today's complaints, Continuance of care, Re-evaluation by your physician. - Problem is an ongoing problem. - Symptoms have improved. Signatures: Dispatcher [employer] Roxanne Ly, RN RN Dom Carney MD MD tw4 Nabeel Arevalo RN RN rr5 Corrections: (The following items were deleted from the chart) 22:41 22:23 11/02/2019 22:23 Discharged to Home. Impression: Epilepsy and recurrent seizures. rr5 Condition is Stable. Forms are Medication Reconciliation Form, Thank You Letter, Antibiotic Education, Prescription Opioid Use. Follow up: Private Physician; When: Upon discharge from the Emergency Department; Reason: Recheck today's complaints, Continuance of care, Re-evaluation by your physician. Follow up: Rufino Hui; When: Upon discharge from the Emergency Department; Reason: Recheck today's complaints, Continuance of care, Re-evaluation by your physician. Follow up: Mario Alberto Marsh; When: Upon discharge from the Emergency Department; Reason: Recheck today's complaints, Continuance of care, Re-evaluation by your physician. Problem is an ongoing problem. Symptoms have improved. tw4
[2019-11-02 22:54] VITALS: TEMP 97.3; O2SAT 99
[2019-11-02 22:58] VITALS: BP 124/69
== END 2019-11-02 22:41 | disposition home or self-care (01) ==
LOC: ER 18:42
DX: G40.909 Epilepsy, unspecified, not intractable, without status epilepticus (principal)
CPT/HCPCS: 96365; 85025; 80048; 36415; 83735; 82550; 85610; 80076; 80307 ×8; 81003; 84484; 82553; 83690; 99284; J1953; J7030

== ENCOUNTER 2019-12-09 20:13 | Emergency (ER) | payer OTHER ==
--- OUTSIDE RECORDS SUMMARY | 2019-12-09 20:16 | XMS REPORT | Summary of Care ---
:1995 Author Organization [facility] - Health Address [address] [place] [address] Care Team Providers Name Role Phone Edmundo Bearden MD Primary Care Provider Encounter Details Date Type Department Care Team Description 09/18/2019 Orders Only [facility] Doctor Unassigned, No [address] [facility] Name [place] [phone] [place] [address] Allergies No Known Allergiesdocumented as of this encounter (statuses as of 11/06/2019) Medications Medication Sig Dispensed Refills Start Date [...] as of this encounter (statuses as of 11/06/2019) Active Problems Problem Noted Date 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 Allergic rhinitis due to pollen 04/07/2015 Seizures, 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/2015 documented as of this encounter (statuses as of 11/06/2019) Social History Tobacco Use Types Packs/Day Years [...] Office Visit Family Medicine Marcellus Bearden MD [address] [place] [address] [phone] Health Maintenance Due Date Last Done Comments VARICELLA VACCINES (1 of 2 - 01/31/1997 2-dose childhood series) MENINGOCOCCAL B VACCINES (1 of 2 - 01/31/2006 Risk Bexsero 2-dose series) DTaP,Tdap,and Td Vaccines (1 - 01/31/2007 Tdap) INFLUENZA VACCINE (Season Ended) 2020 Depression Screening 03/28/2020 03/28/2019 HPV VACCINES Aged Out No longer eligib le based on patient's age to complete this topic PNEUMOCOCCAL 0-64 YEARS COMBINED Aged Out No longer eligible based on SERIES patient's age to complete this topic documented as of this encounter Procedures Procedure Name Priority Date/Time Associated Diagnosis Comme nts INSURANCE CORRESPONDENCE Routine 09/18/2019 12:01 AM CDT documented in this encounter Results Not on filedocumented in this encounter Insurance Payer Benefit Plan / Subscriber ID Effective Dates Phone Addre ss Type Group [facility] [id number] 2019-Present O O documented as of this encounter
--- OUTSIDE RECORDS SUMMARY | 2019-12-09 20:16 | XMS REPORT | Continuity of Care Document ---
:1995 Author Organization [facility] t Address [address] [place] [address] Care Team Providers Name Role Phone Suleiman RINCON, Edmundo Primary Care Physician Unavailable Earnest RIG BUILDER Attending Clinician Edmundo Bearden MD Attending Clinician Doctor Unassigned, Name Attending Clinician Unavailable Problems This patient has no known problems. Allergies, Adverse Reactions, Alerts This patient has no known allergies or adverse reactions. Social History Social Habit Start Date Stop Date Quantity Comments Source Sex Assigned At [facility] Medications This patient has no known medications. Procedures This patient has no known procedures. Encounters Start End Encounter Admission Attending Care Care Encounter Source Date/Time Date/Time Type Type Clinicians Facility Department ID 2019-11-14 2019-11-14 Office CAMERON Tinoco [id number] 14:33:01 16:00:39 Visit Afia AMBULATOR [id number] Y [id number] [id number] 2019-11-14 2019-11-14 Telephone Suleiman [facility] [id number] 00:00:00 00:00:00 [facility] [id number] Edmundo Renee 4.2.7.2.686 Profkailash [phone] nal 044 Office [address] One 2019-09-18 2019-09-18 Telephone Suleiman [facility] [id number] 00:00:00 00:00:00 Marcellus Renee 350.1.13.10 [place]prateek [place] 4.2.7.2.686 Professio [phone] [address] 2019-09-18 2019-09-18 Orders Doctor TADEO 1.2.840.114 [id number] 00:00:00 00:00:00 Only Unassigned, BALDO 350.1.13.10 [facility] 4.2.7.2.686 [id number] 2019-09-17 2019-09-17 [facility] [id number] 00:00:00 00:00:00 Marcellus [place] 350.1.13.10 [facility] 4.2.7.2.686 Professio [phone] [address] 2019-09-05 2019-09-05 [facility] 1.2.840.114 [id number] 00:00:00 00:00:00 Marcellus Renee 350.1.13.10 [facility] 4.2.7.2.686 Professio [phone] [address] 2019-08-31 2019-08-31 [facility] 1.2.840.114 [id number] 00:00:00 00:00:00 Marcellus Renee 350.1.13.10 [facility] 4.2.7.2.686 Professio [phone] [address] 2019-08-31 2019-08-31 Orders Doctor PIEDRA 1.2.840.114 [id number] 00:00:00 00:00:00 Only Unassigned, BALDO 350.1.13.10 [place] [facility] 4.2.7.2.686 [id number] 2019-07-27 2019-07-27 [facility] [id number] 09:09:04 09:24:04 Visit Marcellus [place] 350.1.13.10 Edprateek [place] 4.2.7.2.686 Professio [id number] [address] 2019-07-27 2019-07-27 Orders Doctor TADEO 1.2.840.114 [id number] 00:00:00 00:00:00 Only Unassigned, BALDO 350.1.13.10 [facility] 4.2.7.2.686 [id number] Results Test Description Test Time Test Comments Results Result [facility] e Comments EEG AWAKE AND 2017-09-21 Reason for DATE OF TEST: 09/21/17 DROWSY 15:42:00 exam:->Generaliz DATE OF REPORT: 09/21/17 ed convulsive ACC: [id number] EEG: epilepsy Start time: 9:06 Stop time: 9:37 ICD-10: R56.9 CPT Code: 27275 HISTORY: Mr Hart is a 22 y/o [...] MD, PhD Neurophysiology Fellow Cabrera Dunn M.D., [facility] Professor of Neurology Director, [facility] Epilepsy [place], [place] [facility] Neurophysiology Lab
--- OUTSIDE RECORDS SUMMARY | 2019-12-09 20:16 | XMS REPORT | Summary of Care ---
:1995 Author Organization [facility] - Health Address [address] [place] [address] Care Team Providers Name Role Phone Edmundo Bearden MD Primary Care Provider Encounter Details Date Type Department Care Team Description 08/31/2019 Orders Only [facility] Doctor Unassigned, No [address] [facility] Name [place] [phone] [place] [address] Allergies No Known Allergiesdocumented as of this [...] Office Visit Family Medicine Marcellus Bearden MD [address] [place] [address] [phone] Health Maintenance Due Date Last Done [...] Associated Diagnosis Comme nts INSURANCE CORRESPONDENCE Routine 08/31/2019 12:01 AM CDT documented in this encounter Results Not on filedocumented in this encounter Insurance Payer Benefit Plan / Subscriber ID Effective Dates Phone Addre ss Type Group [facility] [id number] 2019-Present O O documented as of this encounter
--- OUTSIDE RECORDS SUMMARY | 2019-12-09 20:16 | XMS REPORT | Summary of Care ---
:1995 Author Organization [facility] Address [address] [place] [id number] Care Team Providers Name Role Phone Edmundo Bearden MD Primary Care Provider Reason for Referral (Routine) Status Reason Specialty Diagnoses / Referred By Referred To Procedures Contact Contact Pending Review Patient Neurology Diagnoses Cursive epilepsy Marcellus Bearden Requested Procedures CONSULT/REFERRAL NEUROLOGY MD Edmundo Specific [address] [place] [address] [place] [phone] Reason for Visit Reason Comments Referral/consult Encounter Details Date Type Department Care Team Description 11/14/2019 Telephone [facility] Family Marcellus Bearden, Referral/consult Medicine - Víctor RINCON [address] [place] [address] Dr heck [address] [place] [address] [place] [address] [place] [address] [phone] Allergies No Known Allergiesdocumented as of this encounter (statuses as of 11/14/2019) Medications Medication Sig Dispensed Refills Start Date [...] as of this encounter (statuses as of 11/14/2019) Active Problems Problem Noted Date 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 Allergic rhinitis due to pollen 04/07/2015 Seizures, 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/2015 documented as of this encounter (statuses as of 11/14/2019) Social History Tobacco Use Types Packs/Day Years [...] Team Description 01/25/2020 [facility] [address] [place] [address] [phone] Health Maintenance Due Date Last Done Comments VARICELLA VACCINES (1 of 2 - 01/31/1997 2-dose childhood series) MENINGOCOCCAL B VACCINES (1 of 2 - 01/31/2006 Risk Bexsero 2-dose series) DTaP,Tdap,and Td Vaccines (1 - 01/31/2007 Tdap) INFLUENZA VACCINE (#1) 2020 Depression Screening 03/28/2020 03/28/2019 HPV VACCINES Aged Out No longer eligib le based on patient's age to complete this topic PNEUMOCOCCAL 0-64 YEARS COMBINED Aged Out No longer eligible based on SERIES patient's age to complete this topic documented as of this encounter Results Not on filedocumented in this encounter Visit Diagnoses Diagnosis Cursive epilepsy - Primary Other forms of epilepsy and recurrent se izures without mention of intractable epilepsy documented in this encounter Insurance Payer Benefit Plan / Subscriber ID Effective Dates Phone Addre ss Type Group [facility] [id number] 2019-Present O O documented as of this encounter
--- OUTSIDE RECORDS SUMMARY | 2019-12-09 20:16 | XMS REPORT | Clinical Summary ---
:1995 Author Organization [facility] Address [address] [place] [address] Care Team Providers Name Role Phone Edmundo [...] Not on file Results Not on fileafter 12/08/2018 Insurance Payer Benefit Plan / Group Subscriber ID Type Phone A ddress [employer] - [facility] CARE [employer] PPO OPEN [facility] NAP xxxxxxxxx PPO
--- OUTSIDE RECORDS SUMMARY | 2019-12-09 20:17 | XMS REPORT | Summary of Care ---
:1995 Author Organization [facility] [place] [address] Care Team Providers Name Role Phone Edmundo Bearden MD Primary Care Provider Reason for Visit Reason Comments Seizures Consult, Test & Treat (Routine) Status Reason Specialty Diagnoses / Referred By Referred To Procedures Contact Contact Patient Responsible Neurology Diagnoses Okay per Afia Tinoco NP [facility] Afia Tinoco, Procedures ESTABLISHED OFFICE VISIT [address], [address] [phone] Phone: Fax: Encounter Details Date Type Department Care Team Description 11/14/2019 Office Visit [facility] Starr Tinoco NP Seizures Medicine Neurology [address] [place] [address] 9[facility]ly [facility], [address] [address] [place] [address] [phone] Allergies No Known Allergiesdocumented as of this encounter (statuses as of 11/14/2019) Medications Medication Sig Dispensed Refills Start End Date Status Date Melatonin 5 MG TABS Take 26 mg by 0 Active mouth nightly. LamoTRIgine 250 MG Take 250 mg by 90 Tab 1 Active [id number]: mouth daily. 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 may take 1 more if seizures persist). DIPHENHYDRAMINE HCL Take 75 mg by 0 Active OR mouth at bedtime. levetiracetam Take 2 Tabs by 360 Tab 1 A ctive (KEPPRA) 250 MG mouth two 0 tabletIndications: times daily. 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 COVID-19 Exposure Response Date Recorded In the last month, have you been in contact with No / Unsure 11/14/2019 2:32 PM CDT someone who was confirmed or suspected to have Coronavirus / COVID-19? documented as of this encounter Last Filed Vital Signs Vital Sign Reading Time Taken Comments Blood Pressure 144/88 11/14/2019 2:35 PM CDT Pulse 89 11/14/2019 2:35 PM CDT Temperature - - Respiratory Rate - - Oxygen Saturation - - Inhaled Oxygen Concentration - - Weight - - Height 188 cm (6' 2") 11/14/2019 2:35 PM CDT Body Mass Index - - documented in this encounter Patient Instructions Patient InstructionsMaAfia hoover NP - 11/14/2019 2:00 PM CDTEpilepsy: - Continue Levetiracetam 250 mg take 2 tablets twice daily - Continue Lamictal ER 350 mg daily Labs today SPECIFIC SAFETY ISSUES/Counseling: SAFETY: Will need to observe seizure precautions including avoid heights, do not use heavy machinery, avoid swimming alone or taking tub baths. If has seizures in these situations, they can potentially cause harm to patient or to the others. Keep a seizure diary log. Avoid factors that could trigger seizure such as sleep deprivation and physical or emotional stress. Bone health: Vitamin and calcium supplements Sudden : There is a risk for sudden in epileptic patients (SUDEP), mostly seen in individuals with intractable epilepsy, particularly nighttime GTC sezures. Medication counseling: Encouraged to maintain medication compliance Driving: Does not drive Follow up with Dr. Ceballos in 3-4 months. documented in this encounter Progress Notes Afia Tinoco NP - 11/14/2019 2:00 PM CDT [facility] Follow up Date: 11/14/19 Last visit: 08/25/18 Chief Complaint Patient presents with Seizures HPI: Nika Hart is a 24 y.o. left handed male who is seen in clinic for follow up evaluation of seizures. 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 He is accompanied today with his mother. Since last visit, patient reports he had a GTCS X 2 on 11/03/19 and another GTC on 11/08/19. No triggers identified. He has been compliant on his AEDs and tolerating well. After the recent seizures, LEV was increased to 500 mg bid and has been tolerating well with any mood changes. He reported feelingexcessive fatigue yesterday and the day before and he was unsure if it was a seizure coming on and took rescue medication. No jerking or twitching as he usually gets prior to his usual seizures. Previously he had been doing well without GTC and only had occasional staring,in the setting of missed medication doses. Insomnia (difficulty staying asleep) - chronic, got worse since being on LTG has been unchanged. He increased his melatonin (26 mg) and benadryl 75 mg nightly for past many months. Strattera was stopped ~6 months ago and doing well. BACKGROUND: First GTC in July 2009. There was prior events of staring with unresponsiveness for about 1 year before that. He was started on zonisamide, but developed a kidney stone. Ultimately switched to depakote. He was seizure free til May 2014 at which point he was weaned off depakote. He subsequently had another seizure in August 2014 and was restarted on depakote. Previously was switched tokeppra, but it caused irritability and was cross titrated to lamictal. Keppra added back on after seizure on 01/2019. PAST MEDICAL HISTORY: Past Medical History: Diagnosis Date ADD (attention deficit disorder) Allergic rhinitis Seizure disorder (HCCode) SOCIAL HISTORY: Does not drive, rides a motorized bike to work. He works at [employer]. He lives with his parents. Never smoker, never drank alcohol or used recreational drugs. PSYCHIATRIC HISTORY: ADHD- stopped Strattera and doing well. PRIOR TESTING: EEG 10/01/17: Normal awake and drowsy EEG CLINICAL CORRELATION: An EEG without epileptiform discharges does not exclude the possibility of epilepsy.The intermittent left temporal slowing, seen twice, was too infrequent and ill-defined to be of diagnostic significance; consider repeat EEG. EEG 2014: This EEG is within normal limits. MRI 2009: Unremarkable MRI brain with and without contrast without seizure focus identified. No Known Allergies Current Outpatient Medications: clonazepam (KLONOPIN) 0.5 MG tablet, Take 2 Tabs by mouth as needed for Other (Take 1-2 tabletsfor seizure cluster or prolonged seizures. may take 1 more if seizures persist)., Disp: 15 Tab, Rfl:1 DIPHENHYDRAMINE HCL OR, Take 75 mg by mouth at bedtime., Disp: , Rfl: LamoTRIgine 100 MG TB24, Take 100 mg by mouth daily., Disp: 90 Tab, Rfl: 1 LamoTRIgine 250 MG TB24, Take 250 mg by mouth daily., Disp: 90 Tab, Rfl: 1 levetiracetam (KEPPRA) 250 MG tablet, Take 1.5 Tabs by mouth two times daily., Disp: 270 Tab, Rfl: 1 Melatonin 5 MG TABS, Take 26 mg by mouth nightly., Disp: , Rfl: IS PATIENT TAKING MEDICATIONS PRESCRIBED? yes RECENT MEDICATION LEVELS: Results for NIKA HART ( ) as of 11/14/2019 16:32 Ref. Range 01/10/2018 08:17 LAMOTRIGINE LEVEL Latest Ref Range: 4.0 - 18.0 mcg/mL 5.3 MEDICATION SIDE EFFECTS: insomnia MEDICATIONS THAT FAILED IN THE PAST: ZNS: Kidney stone, VPA: hallucinations, LEV-mood changes BONE HEALTH: none reported GENDER SPECIFIC ISSUES: none REVIEW OF SYSTEMS: General ROS: negative Psychological ROS: negative Ophthalmic ROS: negative Respiratory ROS: negative Cardiovascular ROS: negative Gastrointestinal ROS: negative Musculoskeletal ROS: negative Neurological ROS: positive for seizures Dermatological ROS: negative Insomnia EXAMINATION: Vitals: 11/14/19 1435 BP: 144/88 BP Location: left arm Patient Position: Sitting Cuff Size: regular Pulse: 89 Height: 6' 2" (1.88 m) Exam: General: no acute distress HEENT:There are no scalp scars. There is no gingival hypertrophy. SKIN: There is no evidence of a drug rash or drug-induced alopecia. Neuro: Mental Status: The patient is alert and oriented x 3. Affect is appropriate. There is no dysarthria or aphasia. Cranial nerves: visual acuity appears normal bilaterally, pupils equal, round, Extraocular movementsfull without ptosis or nystagmus. Eye closure strength is bilaterally intact and symmetric. Smile was symmetrical, tongue midline with no fasciculation. Cerebellar: Ncoxeu-zd-gewj is without dysmetria or tremor. Motor: Normal muscle bulk. There is no weakness or ataxia in the upper or lower extremities. There is no tremor. Gait steady. Tandem gait was steady. Sensory: There is no sensory loss reported. IMPRESSION/PLAN: Niak Hart is a 24 y.o. 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 Nika was switched to lamictal, however had 2 GTC and low dose keppra added. Previously he could not tolerate LEV due to moodchanges but currently none reported. Seizures were well controlled for the past 9 months until he had a 3 GTCs in 10/2019. No triggers identified. LEV was further up titrated and has been tolerating well. Possibly, he might have been experiencing fatigue in the past couple of days contributed by increase in LEV dose and unlikely seizures. Discussed continuing current medication doses and check medication levels today. Epilepsy: - Continue Lamotrigine ER 350 mg daily - Continue Levetiracetam 250 mg; 500/500 - Clonazepam 0.5 mg prn seizure GENERAL SAFETY: - Will need to observe seizure precautions including avoid heights, do not use heavy machinery, avoid swimming alone or taking tub baths. If has seizures in these situations would be life-threatening. - Avoid factors that could trigger seizure such as sleep deprivation and physical or emotional stress. SPECIFIC SAFETY ISSUES: - Driving: Not driving LABORATORY STUDIES ORDERED: Orders Placed This Encounter Procedures CBC and differential Comprehensive Metabolic Panel (CMP) Levetiracetam Lamotrigine level PRESCRIPTIONS GIVEN: LEV VISIT LENGTH / PROPORTION COUNSELING and COORDINATION OF CARE: Total amount spent with patient was 25 minutes. More than 50% of this time was devoted to overall management, medication counseling and side effect monitoring, and coordination of care. RTC: In 3-4 months and was instructed to call the office for any questions or concerns. Afia Tinoco NP-C Department of Neurology [facility] documented in this encounter Plan of Treatment Name Type Priority Associated Diagnoses Order S chedule CBC W/AUTO DIFF WITH Lab Routine Generalized convulsi ve Ordered: 11/14/2019 PLATELETS epilepsy without intractable epilepsy (HCCode) COMPREHENSIVE METABOLIC Lab Routine Generalized convu lsive Ordered: 11/14/2019 PANEL epilepsy without intractable epilepsy (HCCode) LEVETIRACETAM Lab Routine Generalized convulsive Orde red: 11/14/2019 epilepsy without intractable epilepsy (HCCode) LAMOTRIGINE LEVEL Lab Routine Generalized convulsive Ordered: 11/14/2019 epilepsy without intractable epilepsy (HCCode) Health Maintenance Due Date Last Done Comments TETANUS SHOT (ADULT) 01/31/2011 BMI FOLLOW UP PLAN 01/31/2014 HIV SCREENING 01/31/2014 FLU VACCINE > 6 MONTHS 12/15/2019 02/03/2018 (Declined) documented as of this encounter Results Not on filedocumented in this encounter Visit Diagnoses Diagnosis 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
[2019-12-09] MEDS ORDERED: NA CHLORIDE 0.9% 100 ML IV ONE (20:32)
[2019-12-09] MEDS ORDERED: LEVETIRACETAM 500 MG/5 ML VIAL IV ONE (20:32)
[2019-12-09] MEDS ORDERED: NA CHLORIDE 0.9% 250 ML ONE (20:33)
[2019-12-09 20:44] LABS: Absolute Lymphocytes (CBC) 1.2 K/uL (0.7-4.9); Basophils % 0.2 % (0-1.3); Hematocrit 45.5 % (39.6-49.0); Lymphocytes % 13.2 % (15.3-44.8); MPV 9.1 fL (7.6-11.3); RBC Red Blood Cell Count 5.48 M/uL (4.33-5.43)
[2019-12-09 20:53] LABS: Protime INR 0.94
[2019-12-09 21:12] LABS: ALT/SGPT 26 U/L (12-78); AST/SGOT 18 U/L (15-37); Albumin 3.9 g/dL (3.4-5.0); Alkaline Phosphatase 109 U/L (45-117); BUN Blood Urea Nitrogen 14 mg/dL (7-18); Bicarbonate 27 mmol/L (21-32); Bilirubin Direct < 0.1 mg/dL (0-0.2); Bilirubin Total 0.2 mg/dL (0.2-1.0); Glucose Level 125 mg/dL (74-106); Protein, Total 7.3 g/dL (6.4-8.2); Sodium Level 139 mmol/L (136-145)
[2019-12-09 21:28] LABS: Barbiturates NEGATIVE (NEGATIVE); Benzodiazepines NEGATIVE (NEGATIVE); Cocaine NEGATIVE (NEGATIVE); METHAMPHETAM NEGATIVE (NEGATIVE); Methadone NEGATIVE (NEGATIVE); Opiates NEGATIVE (NEGATIVE); Phencyclidine NEGATIVE (NEGATIVE); THC Cannibis NEGATIVE (NEGATIVE)
--- NOTE | 2019-12-09 21:50 | ER ---
Nurse's Notes [facility] Name: Jaxson Deutsch Age: 24 yrs Sex: Male : 1995 Arrival Date: 12/09/2019 Time: 20:15 Bed 4 Private MD: Diagnosis: Epilepsy and recurrent seizures Presentation: 12/08 20:22 Chief complaint: EMS states: "The pt's family reported that he had a seizure that jd3 lasted for about 1 min. the pt has a GCS of 15 now, but is reporting a headache. the pt is reporting a recent change of the does of one of his medications.". Coronavirus screen: Proceed with normal triage. Ebola Screen: Patient negative for fever greater than or equal to 101.5 degrees Fahrenheit, and additional compatible Ebola Virus Disease symptoms. Initial Sepsis Screen: Does the patient meet any 2 criteria? No. Patient's initial sepsis screen is negative. Does the patient have a suspected source of infection? No. Patient's initial sepsis screen is negative. Risk Assessment: Do you want to hurt yourself or someone else? Patient reports no desire to harm self or others. Onset of symptoms was December 09, 2019. 20:22 Method Of Arrival: EMS: [facility] jd3 20:22 Acuity: JOLIE 3 jd3 Historical: - Allergies: 20:24 No Known Allergies; jd3 - Home Meds: 20:24 Keppra Oral [Active]; lorazepam Oral [Active]; jd3 - PMHx: 20:24 Seizures; jd3 - PSHx: 20:24 None; jd3 - Immunization history:: Adult Immunizations up to date. - Social history:: Smoking status: Patient denies any tobacco usage or history of. Screenin:26 Abuse screen: Denies threats or abuse. Nutritional screening: No deficits noted. jd3 Tuberculosis screening: No symptoms or risk factors identified. Fall Risk IV access (20 points). Ambulatory Aid- None/Bed Rest/Nurse Assist (0 pts). Gait- Normal/Bed Rest/Wheelchair (0 pts) Mental Status- Oriented to own ability (0 pts). Total Patel Fall Scale indicates No Risk (0-24 pts). Assessment: 20:25 General: Appears in no apparent distress. comfortable, Behavior is calm, cooperative, jd3 appropriate for age. Pain: Complains of pain in head Quality of pain is described as aching. Neuro: Level of Consciousness is awake, alert, obeys commands, Oriented to person, place, time, situation, Moves all extremities. Full function Speech is normal, Facial symmetry appears normal, Pupils are PERRLA, Intact. Cardiovascular: Denies chest pain, Capillary refill < 3 seconds Patient's skin is warm and dry. Respiratory: Airway is patent Respiratory effort is even, unlabored, Respiratory pattern is regular, symmetrical, Denies cough, shortness of breath. GI: No signs and/or symptoms were reported involving the gastrointestinal system. : No signs and/or symptoms were reported regarding the genitourinary system. EENT: No signs and/or symptoms were reported regarding the EENT system. Derm: Skin is intact, Skin is dry, Skin is normal, Skin temperature is warm. Musculoskeletal: Circulation, motion, and sensation intact. Range of motion: intact in all extremities. 21:56 Reassessment: Patient appears in no apparent distress at this time. Patient and/or jd3 family updated on plan of care and expected duration. Pain level reassessed. Patient is alert, oriented x 3, equal unlabored respirations, skin warm/dry/pink. Patient states feeling better. Vital Signs: 20:24 BP 135 / 87; Pulse 111; Resp 18 S; Temp 97.8(O); Pulse Ox 100% on R/A; Weight 79.38 kg jd3 (R); Height 6 ft. 0 in. (182.88 cm) (R); Pain 6/10; 21:57 BP 131 / 88; Pulse 101; Resp 17 S; Pulse Ox 100% on R/A; jd3 20:24 Body Mass Index 23.73 (79.38 kg, 182.88 cm) jd3 Luis Coma Score: 20:27 Eye Response: spontaneous(4). Verbal Response: oriented(5). Motor Response: obeys jd3 commands(6). Total: 15. ED Course: 20:15 Patient arrived in ED. ds1 20:16 Dom Carney MD is Attending Physician. tw4 20:21 Jacky Ashraf RN is Primary Nurse. jd3 20:23 Triage completed. jd3 20:25 Arm band placed on. jd3 20:27 Patient has correct armband on for positive identification. Bed in low position. Call jjonas light in reach. Side rails up X2. Seizure precautions initiated. night monitor on. Pulse ox on. NIBP on. 21:00 Maintain EMS IV. Dressing intact. Good blood return noted. Site clean \\T\\ dry. Gauge \\T\\ mg 2 site: 20 LAC. 21:50 No provider procedures requiring assistance completed. mg2 22:16 IV discontinued, intact, bleeding controlled, No redness/swelling at site. Pressure mg2 dressing applied. Administered Medications: 20:40 Drug: Keppra 500 mg Route: IV; Rate: calculated rate; Site: left antecubital; mg2 21:38 Follow up: Response: No adverse reaction; IV Status: Completed infusion mg2 Outcome: 21:49 Discharge ordered by . tyrel 21:57 Condition: stable jd3 22:16 Discharged to home via wheelchair. mg2 22:16 Discharge instructions given to patient, Instructed on discharge instructions, follow up and referral plans. Demonstrated understanding of instructions, follow-up care. 22:16 Patient left the ED. mg2 Signatures: Anita Baez ds1 Jacky Ashraf, RN RN jDom Miguel MD MD tw4 Mukul Nunes RN RN mg2
--- NOTE | 2019-12-09 21:50 | EDPHYS ---
Physician Documentation [facility] Name: Jaxson Deutsch Age: 24 yrs Sex: Male : 1995 Arrival Date: 12/09/2019 Time: 20:15 Bed 4 Private MD: ED Physician Dom Carney HPI: 12/08 21:28 This 24 yrs old Male presents to ER via EMS with complaints of Seizure. tw4 21:28 The patient presents after having a single isolated seizure. Character of seizure(s): tw4 Loss of consciousness: the patient experienced loss of consciousness, Motor activity: generalized. Seizure onset: just prior to arrival. Context: the seizure(s) was witnessed, by family. 23:45 Seizure Hx: Original onset: longstanding. Associated injury: The patient did not suffer tw4 any apparent associated injury. EMS care: supplemental oxygen. The patient has experienced similar episodes in the past, several times. 23:45 The patient has experienced similar episodes in the past, with the last episode tw4 occurring last month. Historical: - Allergies: 20:24 No Known Allergies; jd3 - Home Meds: 20:24 Keppra Oral [Active]; lorazepam Oral [Active]; jd3 - PMHx: 20:24 Seizures; jd3 - PSHx: 20:24 None; jd3 - Immunization history:: Adult Immunizations up to date. - Social history:: Smoking status: Patient denies any tobacco usage or history of. ROS: 23:45 Constitutional: Negative for fever, chills, and weight loss, Eyes: Negative for injury, tw4 pain, redness, and discharge, Cardiovascular: Negative for chest pain, palpitations, and edema, Respiratory: Negative for shortness of breath, cough, wheezing, and pleuritic chest pain, Abdomen/GI: Negative for abdominal pain, nausea, vomiting, diarrhea, and constipation, Back: Negative for injury and pain, MS/Extremity: Negative for injury and deformity, Skin: Negative for injury, rash, and discoloration, Neuro: Negative for headache, weakness, numbness, tingling, and seizure. 23:45 Neuro: Positive for seizure activity, Negative for altered mental status, dizziness, gait disturbance, headache, hearing loss, loss of consciousness, numbness, tinnitus, tremor, visual changes, weakness. Exam: 23:45 Constitutional: This is a well developed, well nourished patient who is awake, alert, tw4 and in no acute distress. Head/Face: Normocephalic, atraumatic. Chest/axilla: Normal chest wall appearance and motion. Nontender with no deformity. No lesions are appreciated. Cardiovascular: Regular rate and rhythm with a normal S1 and S2. No gallops, murmurs, or rubs. Normal PMI, no JVD. No pulse deficits. Respiratory: Lungs have equal breath sounds bilaterally, clear to auscultation and percussion. No rales, rhonchi or wheezes noted. No increased work of breathing, no retractions or nasal flaring. Abdomen/GI: Soft, non-tender, with normal bowel sounds. No distension or tympany. No guarding or rebound. No evidence of tenderness throughout. Back: No spinal tenderness. No costovertebral tenderness. Full range of motion. MS/ Extremity: Pulses equal, no cyanosis. Neurovascular intact. Full, normal range of motion. Neuro: Awake and alert, GCS 15, oriented to person, place, time, and situation. Cranial nerves II-XII grossly intact. Motor strength 5/5 in all extremities. Sensory grossly intact. Cerebellar exam normal. Normal gait. Vital Signs: 20:24 BP 135 / 87; Pulse 111; Resp 18 S; Temp 97.8(O); Pulse Ox 100% on R/A; Weight 79.38 kg jd3 (R); Height 6 ft. 0 in. (182.88 cm) (R); Pain 6/10; 21:57 BP 131 / 88; Pulse 101; Resp 17 S; Pulse Ox 100% on R/A; jd3 20:24 Body Mass Index 23.73 (79.38 kg, 182.88 cm) jd3 Luis Coma Score: 20:27 Eye Response: spontaneous(4). Verbal Response: oriented(5). Motor Response: obeys jd3 commands(6). Total: 15. MDM: 20:43 Patient medically screened. tw4 23:45 Data reviewed: vital signs, nurses notes. Data reviewed: lab test result(s), CBC, tw4 electrolytes, hepatic panel. Data interpreted: Pulse oximetry: Interpretation: normal. Counseling: I had a detailed discussion with the patient and/or guardian regarding: the historical points, exam findings, and any diagnostic results supporting the discharge/admit diagnosis, lab results, radiology results. Special discussion: I discussed with the patient/guardian in detail that at this point there is no indication for admission to the hospital. It is understood, however, that if the symptoms persist or worsen the patient needs to return immediately for re-evaluation. 12/08 20:18 Order name: Basic Metabolic Panel; Complete Time: 21:43 12/08 21:43 Interpretation: GLUC 125; GFR 84. 12/08 20:18 Order name: CBC with Diff; Complete Time: 21:43 12/08 21:47 Interpretation: Normal except: DANG% 77.3; LYM% 13.2; RBC 5.48. 12/08 20:18 Order name: Hepatic Function; Complete Time: 21:43 12/08 21:48 Interpretation: Within normal limits. 12/08 20:18 Order name: PT-INR; Complete Time: 21:43 12/08 21:48 Interpretation: Within normal limits: PT 11.1. 12/08 20:18 Order name: Ptt, Activated; Complete Time: 21:43 12/08 21:48 Interpretation: Within normal limits: PTT 24.6. 12/08 20:18 Order name: Urine Drug Screen; Complete Time: 21:43 12/08 21:48 Interpretation: Within normal limits. 12/08 20:18 Order name: IV Saline Lock; Complete Time: 20:27 12/08 20:18 Order name: Labs collected and sent; Complete Time: 20:39 12/08 20:18 Order name: Urine Dipstick-Ancillary (obtain specimen); Complete Time: 21:38 Administered Medications: 20:40 Drug: Keppra 500 mg Route: IV; Rate: calculated rate; Site: left antecubital; mg2 21:38 Follow up: Response: No adverse reaction; IV Status: Completed infusion mg2 Disposition: 12/09/19 21:49 Discharged to Home. Impression: Epilepsy and recurrent seizures. - Condition is Stable. - Discharge Instructions: Seizure, Adult. - Medication Reconciliation Form, Thank You Letter, Antibiotic Education, Prescription Opioid Use form. - Follow up: Private Physician; When: Upon discharge from the Emergency Department; Reason: Recheck today's complaints, Continuance of care, Re-evaluation by your physician. - Problem is new. - Symptoms have improved. Signatures: Dispatcher [employer] Jacky Denis RN RN jd3 Dom Carney MD MD tw4 Mukul Nunes, RN RN mg2 Corrections: (The following items were deleted from the chart) 22:16 21:49 12/09/2019 21:49 Discharged to Home. Impression: Epilepsy and recurrent seizures. mg2 Condition is Stable. Forms are Medication Reconciliation Form, Thank You Letter, Antibiotic Education, Prescription Opioid Use. Follow up: Private Physician; When: Upon discharge from the Emergency Department; Reason: Recheck today's complaints, Continuance of care, Re-evaluation by your physician. Problem is new. Symptoms have improved. tw4
[2019-12-09 22:21] VITALS: TEMP 97.8; O2SAT 100
[2019-12-09 22:23] VITALS: BP 131/88
== END 2019-12-09 22:16 | disposition home or self-care (01) ==
LOC: ER 20:13
DX: G40.802 Other epilepsy, not intractable, without status epilepticus (principal)
CPT/HCPCS: 96365; 85025; 80048; 36415; 85610; 80076; 80307 ×8; 85730; 99284; J1953; J7050

== ENCOUNTER 2020-01-28 18:46 | Emergency (ER) | payer OTHER ==
--- OUTSIDE RECORDS SUMMARY | 2020-01-28 18:48 | XMS REPORT | Clinical Summary ---
:1995 Author Organization [facility] Address [address] [place] [address] Care Team Providers Name Role Phone Edmunod Bearden MD Primary Care Provider Unavailable Allergies [...] Not on file Results Not on fileafter 01/27/2019 Insurance Payer Benefit Plan / Group Subscriber ID Type Phone A ddress [employer]ET[employer] - [employer]GD CARE AET[employer] PPO OPEN [facility] NAP xxxxxxxxx PPO
--- OUTSIDE RECORDS SUMMARY | 2020-01-28 18:48 | XMS REPORT | Continuity of Care Document ---
:1995 Author Organization [facility] t Address [address] [place] [address] Care Team Providers Name Role Phone Suleiman RINCON, Edmundo Primary Care Physician Unavailable Earnest [employer]GE Attending Clinician Edmundo Bearden MD Attending Clinician Doctor Unassigned, Name Attending Clinician Unavailable Problems This patient has no known problems. Allergies, Adverse Reactions, Alerts This patient has no known allergies or adverse reactions. Social History Social Habit Start Date Stop Date Quantity Comments Source Sex Assigned At [facility] Medications This patient has no known medications. Procedures This patient has no known procedures. Encounters Start End Encounter Admission Attending Care Care Encounter Source Date/Time Date/Time Type Type Clinicians Facility Department ID 2019-11-14 2019-11-14 Office CAMERON Tinoco [id number] 14:33:01 16:00:39 Visit Afia AMBULATOR [id number] Y [phone] [id number] 2019-11-14 2019-11-14 Telephone Suleiman [facility] [id number] 00:00:00 00:00:00 [facility] [id number] Edmundo Renee [id number] Profkailash [phone] nal [address] 2019-09-18 2019-09-18 Telephone Suleiman [facility] [id number] 00:00:00 00:00:00 Marcellus Renee [id number] Edprateek [place] [id number] Professio [phone] [address] 2019-09-18 2019-09-18 Orders Doctor TADEO [id number] 00:00:00 00:00:00 Only Unassigned, BALDO [id number] [facility] [id number] 2019-09-17 2019-09-17 [facility] [id number] 00:00:00 00:00:00 Marcellus [place] [id number] [facility] [id number] Professio [phone] [address] 2019-09-05 2019-09-05 [facility] [id number] 00:00:00 00:00:00 Marcellus Renee [id number] [facility] [id number] Professio [phone] [address] 2019-08-31 2019-08-31 [facility] [id number] 00:00:00 00:00:00 Marcellus Renee [id number] [facility] [id number] Professio [phone] [address] 2019-08-31 2019-08-31 Orders Doctor PIEDRA [id number] 00:00:00 00:00:00 Only Unassigned, BALDO [id number] Maria Stein [facility] [id number] 2019-07-27 2019-07-27 [facility] [id number] 09:09:04 09:24:04 Visit Marcellus [place] [id number] Edprateek [place] [id number] Professio [phone] [address] 2019-07-27 2019-07-27 Orders Doctor TADEO 1.2.840.114 [id number] 00:00:00 00:00:00 Only Unassigned, BALDO [id number] [facility] [id number] Results Test Description Test Time Test Comments Results Result [facility] e Comments EEG AWAKE AND 2017-09-21 Reason for DATE OF TEST: 09/21/17 DROWSY 15:42:00 exam:->Generaliz DATE OF REPORT: 09/21/17 ed convulsive ACC: [id number] EEG: epilepsy Start time: 9:06 Stop time: 9:37 ICD-10: R56.9 CPT Code: 42930 HISTORY: Mr Hart is a 22 y/o [...] MD, PhD Neurophysiology Fellow Cabrera Dunn M.D., [facility] Professor of Neurology Director, [facility] Epilepsy [place], [facility] Neurophysiology Lab
[2020-01-28] MEDS ORDERED: NA CHLORIDE 0.9% 250 ML ONE (19:41)
[2020-01-28] MEDS ORDERED: LEVETIRACETAM 500 MG/5 ML VIAL IV ONE (19:41)
[2020-01-28 19:46] LABS: Absolute Lymphocytes (CBC) 1.1 K/uL (0.7-4.9); Basophils % 0.4 % (0-1.3); Hematocrit 45.7 % (39.6-49.0); MPV 9.3 fL (7.6-11.3); RBC Red Blood Cell Count 5.49 M/uL (4.33-5.43)
[2020-01-28 20:04] LABS: ALT/SGPT 22 U/L (12-78); AST/SGOT 16 U/L (15-37); Albumin 4.1 g/dL (3.4-5.0); Alkaline Phosphatase 115 U/L (45-117); BUN Blood Urea Nitrogen 16 mg/dL (7-18); Bicarbonate 27 mmol/L (21-32); Bilirubin Direct < 0.1 mg/dL (0-0.2); Bilirubin Total 0.3 mg/dL (0.2-1.0); Glucose Level 130 mg/dL (74-106); Potassium 4.1 mmol/L (3.5-5.1); Protein, Total 7.4 g/dL (6.4-8.2); Sodium Level 140 mmol/L (136-145)
--- NOTE | 2020-01-28 20:48 | ER ---
Nurse's Notes [facility] Name: Jaxson Deutsch Age: 24 yrs Sex: Male : 1995 Arrival Date: 01/28/2020 Time: 18:55 Bed 18 Private MD: Diagnosis: Epilepsy and recurrent seizures Presentation: 01/27 18:56 Chief complaint: EMS states: Witnessed seizure, no injuries sustained. Hx of seizure ca1 with medications, reports compliance to meds. Altered upon arrival on scene, A\T\Ox4 at this time. BGL 152. BP 135/77, NV 110. 20G RAC. Coronavirus screen: Client denies travel out of the [place] in the last 14 days. At this time, the client does not indicate any symptoms associated with coronavirus-19. Ebola Screen: Patient negative for fever greater than or equal to 101.5 degrees Fahrenheit, and additional compatible Ebola Virus Disease symptoms Patient denies exposure to infectious person. Patient denies travel to an Ebola-affected area in the 21 days before illness onset. No symptoms or risks identified at this time. Initial Sepsis Screen: Does the patient meet any 2 criteria? No. Patient's initial sepsis screen is negative. Does the patient have a suspected source of infection? No. Patient's initial sepsis screen is negative. Risk Assessment: Do you want to hurt yourself or someone else? Patient reports no desire to harm self or others. Onset of symptoms was January 28, 2020. 18:56 Method Of Arrival: EMS: [facility] ca1 18:56 Acuity: JOLIE 3 ca1 Historical: - Allergies: 18:59 No Known Allergies; ca1 - Home Meds: 18:59 Keppra Oral [Active]; Lamictal Oral [Active]; ca1 - PMHx: 18:59 Seizures; ca1 - PSHx: 18:59 None; ca1 - Immunization history:: Adult Immunizations up to date. - Social history:: Smoking status: Patient denies any tobacco usage or history of. Screenin:27 Abuse screen: Denies threats or abuse. Denies injuries from another. Nutritional rv screening: No deficits noted. Tuberculosis screening: No symptoms or risk factors identified. Fall Risk None identified. Assessment: 19:30 General: Appears comfortable, Behavior is calm, cooperative. rv 19:30 Pain: Complains of pain in headache. Neuro: Level of Consciousness is awake, alert, rv obeys commands, Oriented to person, place, time, situation, Reports headache. Cardiovascular: Patient's skin is warm and dry. Respiratory: Airway is patent Breath sounds are clear bilaterally. Derm: Skin is intact. 20:32 Reassessment: Patient is alert, oriented x 3, equal unlabored respirations, skin rv warm/dry/pink. Patient states feeling better. Patient states symptoms have improved. Vital Signs: 18:56 BP 119 / 78; Pulse 107; Resp 17 S; Temp 98.6(O); Pulse Ox 98% on R/A; ca1 20:32 BP 131 / 80; Pulse 98; Resp 18; Pulse Ox 100% on R/A; rv Vesper Coma Score: 18:59 Eye Response: spontaneous(4). Verbal Response: oriented(5). Motor Response: obeys ca1 commands(6). Total: 15. ED Course: 18:55 Patient arrived in ED. ca1 18:58 Triage completed. ca1 18:59 Arm band placed on right wrist. ca1 19:00 Kush Angulo MD is Attending Physician. mh7 19:28 Eliud Matamoros RN is Primary Nurse. rv 20:26 Maintain EMS IV. Dressing intact. Good blood return noted. Site clean \T\ dry. Gauge \T\ rv site: g20 right ac. 20:33 Patient has correct armband on for positive identification. Seizure precautions rv initiated. Pulse ox on. NIBP on. 20:47 Mario Alberto Marsh MD is Referral Physician. mh7 20:51 No provider procedures requiring assistance completed. IV discontinued, intact, rv bleeding controlled, No redness/swelling at site. Pressure dressing applied. Administered Medications: 19:42 Drug: Keppra 1000 mg Route: IV; Rate: per protocol; Site: right antecubital; rv 20:51 Follow up: Response: No adverse reaction; IV Status: Completed infusion rv Outcome: 20:48 Discharge ordered by . mh7 20:51 Discharged to home ambulatory. rv 20:51 Condition: good 20:51 Discharge instructions given to patient, Instructed on discharge instructions, follow up and referral plans. Demonstrated understanding of instructions, follow-up care. 20:51 Patient left the ED. rv Signatures: Eliud Matamoros RN RN rv Radha Barrientos, RN RN ca1 Kush Angulo, MD RINCON mh7
--- NOTE | 2020-01-28 20:48 | EDPHYS ---
Physician Documentation [facility] Name: Jaxson Deutsch Age: 24 yrs Sex: Male : 1995 Arrival Date: 01/28/2020 Time: 18:55 Bed 18 Private MD: ZOHRA Physician Kush Angulo HPI: 01/27 19:45 This 24 yrs old Male presents to ER via EMS with complaints of Seizure. mh7 19:45 The patient presents after having a single isolated seizure, that lasted an unknown mh7 period of time, the episode(s) was witnessed, by co-worker(s). Character of seizure(s): Loss of consciousness: the patient experienced loss of consciousness, unknown, Motor activity: the motor activity is unknown, Incontinence: incontinent of bladder, Apnea: the patient did not experience apnea, Circulation: the patient did not experience evidence of pulse disturbance, Eye movements: are unknown. Seizure onset: today. Context: the seizure(s) was witnessed, by co-worker(s), occurred at work, occurred while the patient was working, Contributing factors: none. Seizure Hx: Original onset: longstanding, Cause: unknown, Last seizure: The patient's last seizure "not sure", Usual frequency: irregular frequency, Seizure medications: Keppra, Lamictal. Associated injury: The patient did not suffer any apparent associated injury. Current symptoms: Currently, the patient is not experiencing any symptoms, the patient feels back to baseline. The patient has experienced similar episodes in the past, chronically. Per EMS patient had witnessed seizure at work today. Patient was post ictal at the scene. Patient does not remember details of episode. He states that he has been compliant with taking his medications but still has seizures at times. He denies any complaints at this time.. Historical: - Allergies: 18:59 No Known Allergies; ca1 - Home Meds: 18:59 Keppra Oral [Active]; Lamictal Oral [Active]; ca1 - PMHx: 18:59 Seizures; ca1 - PSHx: 18:59 None; ca1 - Immunization history:: Adult Immunizations up to date. - Social history:: Smoking status: Patient denies any tobacco usage or history of. ROS: 19:45 Constitutional: Negative for fever, chills, and weight loss, Eyes: Negative for injury, mh7 pain, redness, and discharge, ENT: Negative for injury, pain, and discharge, Neck: Negative for injury, pain, and swelling, Cardiovascular: Negative for chest pain, palpitations, and edema, Respiratory: Negative for shortness of breath, cough, wheezing, and pleuritic chest pain, Abdomen/GI: Negative for abdominal pain, nausea, vomiting, diarrhea, and constipation, Back: Negative for injury and pain, : Negative for injury, bleeding, discharge, and swelling, MS/Extremity: Negative for injury and deformity, Skin: Negative for injury, rash, and discoloration, Psych: Negative for depression, anxiety, suicide ideation, homicidal ideation, and hallucinations, Allergy/Immunology: Negative for hives, rash, and allergies, Endocrine: Negative for neck swelling, polydipsia, polyuria, polyphagia, and marked weight changes, Hematologic/Lymphatic: Negative for swollen nodes, abnormal bleeding, and unusual bruising. Exam: 19:45 Constitutional: This is a well developed, well nourished patient who is awake, alert, mh7 and in no acute distress. Head/Face: Normocephalic, atraumatic. Eyes: Pupils equal round and reactive to light, extra-ocular motions intact. Lids and lashes normal. Conjunctiva and sclera are non-icteric and not injected. Cornea within normal limits. Periorbital areas with no swelling, redness, or edema. Neck: Trachea midline, no thyromegaly or masses palpated, and no cervical lymphadenopathy. Supple, full range of motion without nuchal rigidity, or vertebral point tenderness. No Meningismus. Chest/axilla: Normal chest wall appearance and motion. Nontender with no deformity. No lesions are appreciated. Cardiovascular: Regular rate and rhythm with a normal S1 and S2. No gallops, murmurs, or rubs. Normal PMI, no JVD. No pulse deficits. Respiratory: Lungs have equal breath sounds bilaterally, clear to auscultation and percussion. No rales, rhonchi or wheezes noted. No increased work of breathing, no retractions or nasal flaring. Abdomen/GI: Soft, non-tender, with normal bowel sounds. No distension or tympany. No guarding or rebound. No evidence of tenderness throughout. Back: No spinal tenderness. No costovertebral tenderness. Full range of motion. Skin: Warm, dry with normal turgor. Normal color with no rashes, no lesions, and no evidence of cellulitis. MS/ Extremity: Pulses equal, no cyanosis. Neurovascular intact. Full, normal range of motion. Neuro: Awake and alert, GCS 15, oriented to person, place, time, and situation. Cranial nerves II-XII grossly intact. Motor strength 5/5 in all extremities. Sensory grossly intact. Cerebellar exam normal. Normal gait. Psych: Awake, alert, with orientation to person, place and time. Behavior, mood, and affect are within normal limits. Vital Signs: 18:56 BP 119 / 78; Pulse 107; Resp 17 S; Temp 98.6(O); Pulse Ox 98% on R/A; ca1 20:32 BP 131 / 80; Pulse 98; Resp 18; Pulse Ox 100% on R/A; rv Luis Coma Score: 18:59 Eye Response: spontaneous(4). Verbal Response: oriented(5). Motor Response: obeys ca1 commands(6). Total: 15. MDM: 19:[address] [facility] 20:46 Differential diagnosis: drug overdose, seizure, medication noncompliane. Data reviewed: [facility] vital signs, nurses notes, EMS record, old medical records, lab test result(s), CBC, electrolytes. Data interpreted: Pulse oximetry: on room air is 100 %. Interpretation: normal. Counseling: I had a detailed discussion with the patient and/or guardian regarding: the historical points, exam findings, and any diagnostic results supporting the discharge/admit diagnosis, lab results, the need for outpatient follow up, to return to the emergency department if symptoms worsen or persist or if there are any questions or concerns that arise at home. Response to treatment: the patient's symptoms have resolved after treatment, the patient's blood pressure is in an acceptable range, mental status has returned to baseline, the patient no longer shows bradycardia, the patient is not short of breath, the patient is not tachycardic, the patient's pain is gone, the patient's temperature has normalized. 01/27 19:21 Order name: CBC with Diff; Complete Time: 20:43 [facility] 01/27 19:21 Order name: Basic Metabolic Panel; Complete Time: 20:43 [facility] 01/27 19:21 Order name: LFT's; Complete Time: 20:43 [facility] Administered Medications: 19:42 Drug: Keppra 1000 mg Route: IV; Rate: per protocol; Site: right antecubital; rv 20:51 Follow up: Response: No adverse reaction; IV Status: Completed infusion rv Disposition: 01/28/20 20:48 Discharged to Home. Impression: Epilepsy and recurrent seizures. - Condition is Stable. - Discharge Instructions: Seizure, Adult, [id number]. - Medication Reconciliation Form, Thank You Letter, Antibiotic Education, Prescription Opioid Use form. - Follow up: Private Physician; When: 1 - 2 days; Reason: Worsening of condition, Recheck today's complaints, Continuance of care, Re-evaluation by your physician. Follow up: Mario Alberto Marsh MD; When: 1 - 2 days; Reason: Worsening of condition, Recheck today's complaints. - Problem is an acute exacerbation. - Symptoms have improved. Signatures: Dispatcher [employer] Eliud Varner RN RN rv Acob, JOHN Garcia RN, Maurice, MD MD [facility] Corrections: (The following items were deleted from the chart) 20:51 20:48 01/28/2020 20:48 Discharged to Home. Impression: Epilepsy and recurrent seizures. rv Condition is Stable. Forms are Medication Reconciliation Form, Thank You Letter, Antibiotic Education, Prescription Opioid Use. Follow up: Private Physician; When: 1 - 2 days; Reason: Worsening of condition, Recheck today's complaints, Continuance of care, Re-evaluation by your physician. Follow up: Mario Alberto Marsh; When: 1 - 2 days; Reason: Worsening of condition, Recheck today's complaints. Problem is an acute exacerbation. Symptoms have improved. [facility]
[2020-01-28 21:50] VITALS: TEMP 98.6
[2020-01-28 21:51] VITALS: BP 131/80; O2SAT 100
== END 2020-01-28 20:51 | disposition home or self-care (01) ==
LOC: ER 18:46
DX: G40.802 Other epilepsy, not intractable, without status epilepticus (principal)
CPT/HCPCS: 96365; 85025; 80048; 36415; 80076; 99283; J1953; J7050

== ENCOUNTER 2023-11-20 00:14 | Emergency (ER) | payer OTHER ==
[2023-11-20] MEDS ORDERED: NA CHLORIDE 0.9% 1,000 ML ONE (01:07)
[2023-11-20] MEDS ORDERED: LORazepam 2 MG/ML VIAL ONE (01:07)
[2023-11-20 01:20] LABS: Absolute Eosinophils 0.1 K/uL (0-0.5); Absolute Lymphocytes (CBC) 1.4 K/uL (0.7-4.9); Absolute Monocytes 0.6 K/uL (0.1-1.3); Absolute Neutrophil 4.8 K/uL (1.8-8.0); Basophils % 0.3 % (0-1.3); Eosinophils % 0.8 % (0-4.4); Hematocrit 45.3 % (39.6-49.0); Hemoglobin 14.9 g/dL (13.6-17.9); Lymphocytes % 20.1 % (15.3-44.8); MCH 28.7 pg (27.0-35.0); MCHC 32.8 g/dL (32.0-36.0); MCV 87.6 fL (80-100); MPV 9.9 fL (7.6-11.3); Monocytes % 8.1 % (3.3-12.3); Neutrophils % 70.7 % (41.7-73.7); Platelets 180 thou/uL (152-406); RBC Red Blood Cell Count 5.17 M/uL (4.33-5.43); Red Cell Distribution Width 13.2 % (12.1-15.2)
[2023-11-20 01:28] LABS: PT Prothrombin Time 11.2 SECONDS (9.4-12.5); PTT, Activated Partial Thromb 31.5 SECONDS (24.3-36.9); Protime INR 1.02
[2023-11-20 01:33] LABS: ALT/SGPT 24 U/L (16-61); AST/SGOT 16 U/L (15-37); Albumin 3.7 g/dL (3.4-5.0); Albumin/Globulin Ratio 1.3 (1.1-1.8); Alkaline Phosphatase 90 U/L (45-117); Anion Gap 7.7 mEq/L (5.0-15.0); BUN Blood Urea Nitrogen 22 mg/dL (7-18); Bicarbonate 26 mEq/L (21-32); Bilirubin Total 0.3 mg/dL (0.2-1.0); Globulin 2.9 g/dL (2.3-3.5); Glomerular Filtration Rate 99 ml/min (=/>90); Glucose Level 122 mg/dL (74-106); Potassium 3.7 mEq/L (3.5-5.1); Protein, Total 6.6 g/dL (6.4-8.2); Sodium Level 140 mEq/L (136-145)
[2023-11-20 01:34] LABS: Bilirubin Direct < 0.2 mg/dL (0-0.2); Bilirubin Indirect, Calculated 0.1 mg/dL (0.2-0.8)
[2023-11-20] MEDS ORDERED: LIDOCAINE 2% W/EPI 1:200,000 MPF 20 ML VIAL IM ONE (02:01)
--- NOTE | 2023-11-20 04:55 | ER ---
Nurse's Notes [facility] Name: Jaxson Deutsch Age: 28 yrs Sex: Male : 1995 Arrival Date: 11/20/2023 Time: 00:14 Bed 15 Private MD: Diagnosis: Other seizures;Laceration without foreign body of other part of head, initial encounter-chin;Contusion of unspecified part of head, initial encounter;Pain in right elbow Presentation: 11/19 00:33 Chief complaint: EMS states: Called to patient's home due to patient having a seizure. cm10 Per EMS report, pt was in the shower and the family heard him fall. Pt was postictal upon EMS arrival. Pt has laceration to chin and is reporting right elbow pain. Pt currently A\T\Ox4. Coronavirus screen: Client denies travel out of the [place] in the last 14 days. At this time, the client does not indicate any symptoms associated with coronavirus-19. Ebola Screen: Patient denies travel to an Ebola-affected area in the 21 days before illness onset. No symptoms or risks identified at this time. Complicating Factors: There are no complicating factors for this patient. Initial Sepsis Screen: Does the patient meet any 2 criteria? No. Patient's initial sepsis screen is negative. Does the patient have a suspected source of infection? No. Patient's initial sepsis screen is negative. Risk Assessment: Do you want to hurt yourself or someone else? Patient reports no desire to harm self or others. Onset of symptoms Onset of symptoms was November 20, 2023. 00:33 Method Of Arrival: EMS: [facility] cm10 00:33 Acuity: JOLIE 3 cm10 Triage Assessment: 00:36 General: Appears in no apparent distress. comfortable, Behavior is calm, cooperative. cm10 Pain: Complains of pain in chin and right elbow. Neuro: No deficits noted. Level of Consciousness is awake, alert, obeys commands, Oriented to person, place, time, situation, Appropriate for age. Cardiovascular: No deficits noted. Patient's skin is warm and dry. Rhythm is regular. Respiratory: No deficits noted. Airway is patent Respiratory effort is even, unlabored, Respiratory pattern is regular, symmetrical. Musculoskeletal: Reports pain in right elbow. Injury Description: Laceration sustained to chin is clean, is bleeding a small amount. Historical: - Allergies: 00:35 No Known Allergies; cm10 - PMHx: 00:35 Seizures; cm10 - Immunization history:: Adult Immunizations up to date. - Infectious Disease History:: Denies. - Social history:: Smoking status: Patient denies any tobacco usage or history of. Screenin:37 [facility] ED Fall Risk Assessment (Adult) History of falling in the last 3 months, cm10 including since admission Yes- physiologic fall (2 pts) Confusion or Disorientation No (0 pts) Intoxicated or Sedated No (0 pts) Impaired Gait No (0 pts) Mobility Assist Device Used No (0 pt) Altered Elimination No (0 pt) Score/Fall Risk Level 0 - 2 = Low Risk Oriented to surroundings, Maintained a safe environment, Hourly rounding (assess needs \T\ fall precautionary measures) done. Abuse screen: Denies threats or abuse. Denies injuries from another. Nutritional screening: No deficits noted. Tuberculosis screening: No symptoms or risk factors identified. Assessment: 01:30 Reassessment: Patient appears in no apparent distress at this time. No changes from cm10 previously documented assessment. Patient and/or family updated on plan of care and expected duration. Pain level reassessed. Patient is alert, oriented x 3, equal unlabored respirations, skin warm/dry/pink. 02:33 Reassessment: Patient appears in no apparent distress at this time. No changes from cm10 previously documented assessment. Patient and/or family updated on plan of care and expected duration. Pain level reassessed. Patient is alert, oriented x 3, equal unlabored respirations, skin warm/dry/pink. 03:35 Reassessment: Patient appears in no apparent distress at this time. Patient and/or pc2 family updated on plan of care and expected duration. Pain level reassessed. 04:30 Reassessment: Patient and/or family updated on plan of care and expected duration. Pain pc2 level reassessed. Patient is alert, oriented x 3, equal unlabored respirations, skin warm/dry/pink. 05:50 Reassessment: Patient appears in no apparent distress at this time. Patient is alert, pc2 oriented x 3, equal unlabored respirations, skin warm/dry/pink. Splint and sling applied to right arm. Pulses present. Pt tolerated well. Vital Signs: 00:30 BP 135 / 92; Pulse 92; Resp 16; Pulse Ox 98% on R/A; cm10 00:33 BP 125 / 80; Pulse 90; Resp 14; Temp 98; Pulse Ox 100% on R/A; Weight 63.05 kg (M); cm10 Height 6 ft. 0 in. ; Pain 8/10; 01:00 BP 127 / 81; Pulse 87; Resp 16; cm10 01:30 BP 119 / 86; Pulse 92; Resp 16; Pulse Ox 100% on R/A; cm10 02:00 BP 117 / 81; Pulse 88; Resp 16; Pulse Ox 99% on R/A; cm10 03:00 BP 109 / 67; Pulse 83; Resp 16; Pulse Ox 96% on R/A; pc2 04:00 BP 111 / 69; Pulse 72; Resp 16; Pulse Ox 98% on R/A; pc2 06:01 BP 117 / 70; Pulse 81; Resp 16; Pulse Ox 100% on R/A; pc2 00:33 Body Mass Index 18.85 (63.05 kg, 182.88 cm) cm10 00:33 Pain Scale: Adult cm10 ED Course: 00:24 Patient arrived in ED. cm10 00:29 Brody Pelaez PA is PHCP. cp 00:29 Brody Gaming MD is Attending Physician. cp 00:33 Indu Gonzales, JOHN is Primary Nurse. cm10 00:35 Triage completed. cm10 00:37 Arm band placed on Patient placed in an exam room, on consumer insight analyst, on pulse cm10 oximetry. 00:38 Patient has correct armband on for positive identification. Bed in low position. Call cm10 light in reach. Side rails up X2. Adult w/ patient. Provided Education on: ER process and procedures.. 00:58 Acetaminophen Sent. cm10 00:58 Basic Metabolic Panel Sent. cm10 00:58 CBC with Diff Sent. cm10 00:58 ETOH Level Sent. cm10 00:58 Hepatic Function Sent. cm10 00:58 PT-INR Sent. cm10 00:58 Ptt, Activated Sent. cm10 00:58 Salicylate Sent. cm10 00:59 Initial lab(s) drawn, by ct, sent to lab. Inserted saline lock: 20 gauge in left cm10 antecubital area, using aseptic technique. Blood collected. 01:05 CT Head C Spine In Process Unspecified. EDMS 01:05 CT Facial Bones W/O Con In Process Unspecified. EDMS 01:49 Wound care: to laceration located on chin was cleaned with Hibiclens, Patient tolerated cm10 well. 01:55 XRAY Elbow RIGHT 3 view In Process Unspecified. EDMS 02:07 EKG done, by ED staff, reviewed by Brody VICENTE. oe 02:34 Provider at bedside suturing laceration. cm10 02:34 Assist provider with laceration repair on chin that was between 2.6 to 7.5 cm using cm10 sutures. Set up tray. Performed by Brody VICENTE. 02:58 Report given to Sherine LOPEZ and Telma RN. cm10 03:41 CT Head Brain wo Cont In Process Unspecified. EDMS 03:[address] at this time via stretcher. NAD noted. pc2 06:02 IV discontinued, intact, bleeding controlled, No redness/swelling at site. Pressure pc2 dressing applied. 06:11 Orthoglass splint: posterior long arm splint applied to the right arm. Sling applied to oe right arm. Administered Medications: 01:14 Drug: NS 0.9% IV 1000 ml IV at 1 bolus Per protocol; 1000 mL bolus Route: IV; Rate: 1 cm10 bolus; Site: left antecubital; 02:58 Follow up: Response: No adverse reaction; IV Status: Completed infusion; IV Intake: cm10 1000ml 01:14 Drug: Ativan IVP 1 mg IVP once Route: IVP; Site: left antecubital; cm10 02:58 Follow up: Response: No adverse reaction cm10 02:57 Drug: Lidocaine Infiltration (2 %) 10 ml 5 ml Infiltration once; with epinephrine cm10 {Note: given by provider.} Volume: 5 ml; Route: Infiltration; Medication: 06:01 VIS not applicable for this client. pc2 Intake: 02:58 IV: 1000ml; Total: 1000ml. cm10 Outcome: 04:54 Discharge ordered by . cp 06:02 Discharged to home ambulatory, with family, pc2 06:02 Condition: stable 06:02 Discharge instructions given to patient, family, Instructed on discharge instructions, follow up and referral plans. medication usage, Demonstrated understanding of instructions, follow-up care, medications, Prescriptions given X 1, 06:24 Patient left the ED. oe Signatures: Dispatcher [employer] EDMS Brody Pelaez PA PA cp Espinosa, [place] oe Indu Gonzales RN RN cm10 Telma Guillen, RN RN pc2 Corrections: (The following items were deleted from the chart) 00:38 00:37 VIS not applicable for this client. cm10 cm10
--- NOTE | 2023-11-20 04:55 | EDPHYS ---
Physician Documentation [facility] Name: Jaxson Deutsch Age: 28 yrs Sex: Male : 1995 Arrival Date: 11/20/2023 Time: 00:14 Bed 15 Private MD: ZOHRA Physician Brody Gaming HPI: 11/19 01:00 This 28 yrs old Male presents to ER via EMS with complaints of Laceration, Seizure. cp 01:00 The patient presents after having a single isolated seizure, that lasted an unknown cp period of time. Character of seizure(s): Loss of consciousness: the patient experienced loss of consciousness, Motor activity: generalized, shaking all over. Seizure onset: just prior to arrival. Context: occurred at home, after getting out of shower. Seizure Hx: Usual frequency: irregular frequency. Associated injury: Head/face: underside of chin, contusion, laceration, Right upper extremity: right elbow, pain, tenderness, painful ROM. Current symptoms: Currently, the patient is not experiencing any symptoms, the patient feels back to baseline. Historical: - Allergies: 00:35 No Known Allergies; cm10 - PMHx: 00:35 Seizures; cm10 - Immunization history:: Adult Immunizations up to date. - Infectious Disease History:: Denies. - Social history:: Smoking status: Patient denies any tobacco usage or history of. ROS: 01:05 Constitutional: Negative for body aches, chills, fever, cp 01:05 Cardiovascular: Negative for chest pain, palpitations, cp 01:05 Eyes: Negative for injury, pain, redness, and discharge, cp 01:05 Respiratory: Negative for cough, shortness of breath, wheezing, 01:05 Abdomen/GI: Negative for abdominal pain, vomiting, diarrhea, constipation, 01:05 MS/extremity: Positive for pain, tenderness, of the right elbow, painful ROM, Negative for paresthesias, 01:05 Neuro: Positive for hx of seizure, Negative for altered mental status, 01:05 All other systems are negative, Exam: 01:10 Constitutional: The patient appears in no acute distress, alert, awake, cp non-diaphoretic, non-toxic, well developed, well nourished, 01:10 Head/face: Noted is a laceration(s), that is deep, that is linear, of the underside of cp chin, swelling, that is mild, 01:10 Eyes: Periorbital structures: appear normal, Pupils: equal, round, and reactive to light and accomodation, Extraocular movements: intact throughout, Conjunctiva: normal, no exudate, no injection, Lids and lashes: appear normal, bilaterally, 01:10 ENT: External ear(s): are unremarkable, Nose: is normal, Mouth: Lips: moist, Oral mucosa: pink and intact, moist, Posterior pharynx: Airway: no evidence of obstruction, patent, 01:10 Neck: C-spine: vertebral tenderness, is not appreciated, crepitus, is not appreciated, ROM/movement: nuchal rigidity, is not appreciated, 01:10 Chest/axilla: Inspection: normal, Palpation: is normal, no crepitus, no tenderness, :10 Cardiovascular: Rate: normal, Rhythm: regular, :10 Respiratory: the patient does not display signs of respiratory distress, Respirations: normal, no use of accessory muscles, no retractions, labored breathing, is not present, Breath sounds: are clear throughout, no decreased breath sounds, no stridor, no wheezing, :10 Abdomen/GI: Inspection: abdomen appears normal, Palpation: abdomen is soft and non-tender, in all quadrants, :10 Back: pain, is absent, ROM is normal, :10 Musculoskeletal/extremity: Extremities: noted in the right elbow: tenderness, mild swelling, ROM: limited passive range of motion due to pain, in the right elbow, Pulses: noted to be 2+ in the right radial artery, the right arm Sensation intact. 01:10 Neuro: Orientation: to person, place \T\ time. Mentation: is normal, 01:38 ECG was reviewed by the Attending Physician. cp Vital Signs: 00:30 BP 135 / 92; Pulse 92; Resp 16; Pulse Ox 98% on R/A; cm10 00:33 BP 125 / 80; Pulse 90; Resp 14; Temp 98; Pulse Ox 100% on R/A; Weight 63.05 kg (M); cm10 Height 6 ft. 0 in. ; Pain 8/10; 01:00 BP 127 / 81; Pulse 87; Resp 16; cm10 01:30 BP 119 / 86; Pulse 92; Resp 16; Pulse Ox 100% on R/A; cm10 02:00 BP 117 / 81; Pulse 88; Resp 16; Pulse Ox 99% on R/A; cm10 03:00 BP 109 / 67; Pulse 83; Resp 16; Pulse Ox 96% on R/A; pc2 04:00 BP 111 / 69; Pulse 72; Resp 16; Pulse Ox 98% on R/A; pc2 06:01 BP 117 / 70; Pulse 81; Resp 16; Pulse Ox 100% on R/A; pc2 00:33 Body Mass Index 18.85 (63.05 kg, 182.88 cm) cm10 00:33 Pain Scale: Adult cm10 Laceration: 02:59 Wound Repair of 3cm ( 1.2in ) subcutaneous laceration to underside of chin. Linear cp shaped.. Distal neuro/vascular/tendon intact. Anesthesia: Wound infiltrated with 6 mls of 2% lidocaine. Wound prep: Moderate cleansing by me. Skin closed with 5 5-0 Prolene using interrupted sutures and sterile technique. Subcutaneous tissue closed with 3 5-0 Vicryl using interrupted sutures and sterile technique. Dressed with Bacitracin, 4x4's. Patient tolerated well. MDM: 00:29 Patient medically screened. 04:53 Data reviewed: vital signs, nurses notes, lab test result(s), EKG, radiologic studies, cp CT scan, plain films, and as a result, I will discharge patient. 04:53 I considered the following discharge prescriptions or medication management in the emergency department Medications were administered in the Emergency Department. See MAR. Independent interpretation of the following test(s) in the Emergency Department EKG: See my EKG interpretation above. Care significantly affected by the following chronic conditions: seizure disorder. Counseling: I had a detailed discussion with the patient and/or guardian regarding the historical points, exam findings, and any diagnostic results supporting the discharge/admit diagnosis, lab results, radiology results, to return to the emergency department if symptoms worsen or persist or if there are any questions or concerns that arise at home. Response to treatment: the patient's symptoms have markedly improved after treatment, and as a result, I will discharge patient. 11/19 00:41 Order name: Acetaminophen; Complete Time: 01:47 cp 11/19 00:41 Order name: Basic Metabolic Panel; Complete Time: :47 cp 11/19 00:41 Order name: CBC with Diff; Complete Time: :47 cp 11/19 00:41 Order name: ETOH Level; Complete Time: 01:47 cp 11/19 00:41 Order name: Hepatic Function; Complete Time: 01:47 cp 11/19 00:41 Order name: PT-INR; Complete Time: 01:47 cp 11/19 00:41 Order name: Ptt, Activated; Complete Time: 01:47 cp 11/19 00:41 Order name: Salicylate; Complete Time: 01:47 cp 11/19 00:41 Order name: CT Head C Spine cp 11/19 00:41 Order name: CT Facial Bones W/O Con cp 11/19 00:41 Order name: XRAY Elbow RIGHT 3 view cp 11/19 03:13 Order name: CT Head Brain wo Cont cp 11/19 00:41 Order name: EKG; Complete Time: 00:42 cp 11/19 00:41 Order name: EKG - Nurse/Tech; Complete Time: 01:34 cp 11/19 00:41 Order name: IV Saline Lock; Complete Time: 00:55 cp 11/19 00:41 Order name: Labs collected and sent; Complete Time: 00:55 cp 11/19 01:47 Order name: Wound Care; Complete Time: 01:49 cp 11/19 01:48 Order name: Dressing - Wound; Complete Time: 02:58 cp 11/19 01:48 Order name: Gloves, Sterile; Complete Time: 02:58 cp 11/19 01:48 Order name: Setup Suture Tray; Complete Time: 02:58 cp 11/19 04:56 Order name: Sling; Complete Time: 06:00 cp 11/19 04:56 Order name: Splint - Elbow - Posterior: long arm; Complete Time: 06:00 cp EC:38 Rate is 91 beats/min. Rhythm is regular. CT interval is normal. QRS interval is normal. cp QT interval is normal. T waves are Inverted in lead aVR. Interpreted by me. Reviewed by me. Administered Medications: 01:14 Drug: NS 0.9% IV 1000 ml IV at 1 bolus Per protocol; 1000 mL bolus Route: IV; Rate: 1 cm10 bolus; Site: left antecubital; 02:58 Follow up: Response: No adverse reaction; IV Status: Completed infusion; IV Intake: cm10 1000ml 01:14 Drug: Ativan IVP 1 mg IVP once Route: IVP; Site: left antecubital; cm10 02:58 Follow up: Response: No adverse reaction cm10 02:57 Drug: Lidocaine Infiltration (2 %) 10 ml 5 ml Infiltration once; with epinephrine cm10 {Note: given by provider.} Volume: 5 ml; Route: Infiltration; Disposition Summary: 11/20/23 04:54 Discharge Ordered Notes: Location: Home cp Problem: new cp Symptoms: have improved cp Condition: Stable cp Diagnosis - Other seizures cp - Laceration without foreign body of other part of head, initial encounter - chin cp - Contusion of unspecified part of head, initial encounter cp - Pain in right elbow cp Followup: cp - With: Private Physician - When: 7 - 10 days - Reason: Staple/Suture removal Discharge Instructions: - Discharge Summary Sheet cp - Head Injury, Adult cp - Facial Laceration cp - Seizure, Adult cp - Elbow Contusion cp Forms: - Medication Reconciliation Form cp - Antibiotic Education cp - Prescription Opioid Use cp - Patient Portal Instructions cp - Leadership Thank You Letter cp Prescriptions: - Ibuprofen 800 mg Oral Tablet - take 1 tablet ORAL route every 8 hours As needed take with food; 30 tablet; cp Refills: 0, Product Selection Permitted Addendum: 11/23/2023 18:29 Co-signature as Attending Physician, Brody Gaming MD I agree with the assessment and c jimenez plan of care. Signatures: Dispatcher [employer] Brody Kennedy MD MD cha Page, Corey, PA PA cp Indu Gonzales RN RN cm10 Corrections: (The following items were deleted from the chart) 11/19 00:41 00:41 Suicide Screening ([place]) ordered. cp cm10 00:42 00:42 ACETAMINOPHEN+C.LAB.BRZ ordered. EDMS EDMS 00:42 00:42 BASIC METABOLIC PANEL+C.LAB.BRZ ordered. EDMS EDMS 00:42 00:42 CBC+H.LAB.BRZ ordered. EDMS EDMS 00:42 00:42 ETHANOL+C.LAB.BRZ ordered. EDMS EDMS 00:42 00:42 HEPATIC FUNCTION+C.LAB.BRZ ordered. EDMS EDMS 00:42 00:42 PROTIME (+INR)+COAG.LAB.BRZ ordered. EDMS EDMS 00:42 00:42 PTT, ACTIVATED+COAG.LAB.BRZ ordered. EDMS EDMS 00:42 00:42 SALICYLATE+C.LAB.BRZ ordered. EDMS EDMS 00:42 00:42 URINE DRUG SCREEN+UC.LAB.BRZ ordered. EDMS EDMS 05:02 01:00 Associated injury: Head/face: underside of chin, contusion, laceration, cp cp
[2023-11-20 06:51] VITALS: BP 117/70; TEMP 100.1; O2SAT 100
--- NOTE | 2023-11-20 10:30 | EKG ---
Test Date: 2023-11-20 Test Time: 01:32:42 Foundry Patternmaker: NIKHIL MEASUREMENT RESULTS: Intervals: Rate: 91 ME: 144 QRSD: 88 QT: 368 QTc: 452 [place]: P: 60 ME: 144 QRS: 84 T: 59 INTERPRETIVE STATEMENTS: Normal sinus rhythm Normal ECG Compared to ECG 01/29/2018 14:26:53 No significant changes Electronically Signed On 11-20-23 10:30:02 CDT by Levi Squires
--- NOTE | 2023-11-22 10:08 | RAD REPORT ---
EXAM DESCRIPTION: CT - Head C Spine Mpr Wo Con - 11/20/2023 6:58 am ADDENDUM #1 Addendum: Dr. Bettencourt discussed these findings and recommendations with JULES Butler, via telephone at [facility] 03:02 hours EST on 11/20/2023. Electronically signed by: Girish Bettencourt MD 11/20/2023 02:48 AM CDT RP End of Addendum TECHNIQUE: CT Head and Cervical Spine Without Intravenous Contrast CLINICAL HISTORY: The patient is 28 years old and is Male; Seizure TECHNIQUE: Axial computed tomography images of the head/brain and cervical spine without intravenous contrast. Sagittal and coronal reformatted images were created and reviewed. This CT exam was pe rformed using one or more of the following dose reduction techniques: automated exposure control, a djustment of the mA and/or kV according to patient size, and/or use of iterative reconstruction techn ique. COMPARISON: CT Head Cervical Spine 01/29/2018. FINDINGS: BRAIN: Suspected small subdural hematoma demonstrated along the inferior lateral left fr ontal convexity, measuring up to 0.4 cm in thickness, versus artifact related to volume averaging. No no other extra-axial fluid collection or evidence of acute intracranial hemorrhage. No focal christine-white matter differentiation abnormality. MIDLINE SHIFT: No midline shift. VENTRICLES: Unremarkable No ventriculomegaly. SKULL: See below. SINUSES: Unremarkable as visualized. No acute sinusitis. MASTOID AIR CELLS: Unremarkable as visualized. No mastoid effusion. VERTEBRAE: No acute fracture or acute vertebral body height loss. No significant subluxation. DISCS/SPINAL CANAL/NEURAL FORAMINA: No acute findings. No transtentorial herniation. No significant jyoti spinal canal stenosis. OTHER BONES/JOINTS: Unremarkable as visualized. No fracture of the calvarium or visualized facial bones. SOFT TISSUES: Unremarkable No abnormal prevertebral soft tissue swelling. OROPHARYNX: Punctate calcifications noted in the bilateral palatine tonsils, suggesting chronic ton sillitis. OTHER FINDINGS: Dens is intact. No dislocation. Craniocervical orientation is normal. IMPRESSION: 1. Suspected small subdural hematoma demonstrated along the inferior lateral left fron dipak convexity, measuring up to 0.4 cm in thickness, versus artifact related to volume averaging. Albert mmend short-term follow-up repeat CT head in 2 to 6 hours to evaluate for evolution. 2. No other acute intracranial abnormality. No acute abnormality of the cervical spine. Electronically signed by: Girish Bettencourt MD 11/20/2023 01:58 AM CDT RP Due to temporary technical issues with the PACS/Fluency reporting system, reports are being signed by the in house radiologist without review as a courtesy to ensure prompt reporting. The interpreting r adiologist is fully responsible for the content of the report.
--- NOTE | 2023-11-22 10:41 | RAD REPORT ---
EXAM DESCRIPTION: RAD - Elbow Right 3 View - 11/20/2023 1:53 am CLINICAL HISTORY: 28 years, Male, PAIN COMPARISON: None FINDINGS: 3 X-ray views of the right elbow (frontal lateral and oblique views) were performed. Bones: No areas of acute bony injuries were demonstrated. Radial head demonstrate to be unremarkabl e. Soft tissues: No significant soft tissue swelling. Joints: No gross articular abnormality is identified. Others: There are no gross intraosseous lesions. No periosteal reaction were seen. No radiopaque foreign body. No definitive displaced fracture are identified, if symptoms persist, clinical correlat ion and/or further evaluation with CT scan and/or MRI could be of assistance. IMPRESSION: No acute bony injuries were demonstrated. Electronically signed by: Chriss Perez MD 11/20/2023 02:11 AM CDT Due to temporary technical issues with the PACS/Fluency reporting system, reports are being signed by the in house radiologist without review as a courtesy to ensure prompt reporting. The interpreting r adiologist is fully responsible for the content of the report.
--- NOTE | 2023-11-22 10:51 | RAD REPORT ---
EXAM DESCRIPTION: CT - Head Brain Wo Cont - 11/20/2023 6:59 am CLINICAL HISTORY: Repeat head CT to r/o subdural COMPARISON: 03/22/2024 TECHNIQUE: Axial CT of the head obtained from the skull apex to the skull base without contrast. Thi s exam was performed according to our departmental dose-optimization program, which includes automate d exposure control, adjustment of the mA and/or kV according to patient size and/or use of iterative reconstruction technique. FINDINGS: No acute intracranial hemorrhage identified. No mass, mass effect, shift of the midline, a bnormal extra-axial fluid collection or CT evidence of acute ischemic change identified. The ventricu lar system is unremarkable. No acute abnormalities of the supratentorial white matter, basal gangli a, cerebellum, or brainstem. The visualized paranasal sinuses and the mastoids are relatively well aerated. No skull fracture id entified. Visualized orbits and globes are unremarkable. IMPRESSION: 1. No acute intracranial abnormality identified. Previously visualized hypodensity yvette ng the left lateral convexity is no longer identified on this study. Electronically signed by: Shawn Naranjo DO 11/20/2023 04:44 AM CDT RP 4ZDM Due to temporary technical issues with the PACS/Fluency reporting system, reports are being signed by the in house radiologist without review as a courtesy to ensure prompt reporting. The interpreting r adiologist is fully responsible for the content of the report.
--- NOTE | 2023-11-22 10:58 | RAD REPORT ---
EXAM DESCRIPTION: CT - Facial Bones W/ Mpr - 11/20/2023 6:57 am CLINICAL HISTORY: The patient is 28 years old and is Male; chin laceration TECHNIQUE: Axial computed tomography images of the face without intravenous contrast. Sagittal and coronal reformatted images were created and reviewed. This CT exam was performed using one or more of the following dose reduction techniques: automated exposure control, adjustment of the mA and/o r kV according to patient size, and/or use of iterative reconstruction technique. COMPARISON: No relevant prior studies available. FINDINGS: Bones/joints: No fracture. Soft tissues: Laceration of the superficial soft tissue underneath the ventral aspect of the left side of the mandible. No radiopaque foreign body. Orbits: Intact. Sinuses: Clear paranasal sinuses. IMPRESSION: Laceration of the superficial soft tissue underneath the ventral aspect of the left side of the mandible. No radiopaque foreign body. No fracture. Electronically signed by: Jennifer Ferraro MD 11/20/2023 01:40 AM CDT Due to temporary technical issues with the PACS/Fluency reporting system, reports are being signed by the in house radiologist without review as a courtesy to ensure prompt reporting. The interpreting r adiologist is fully responsible for the content of the report.
== END 2023-11-20 06:24 | disposition home or self-care (01) ==
LOC: ER 00:14
PROC: 0HQ1XZZ Repair Face Skin, External Approach (ICD-10-PCS; principal; 2023-11-20)
DX: G40.89 Other seizures (principal); S01.81XA Laceration without foreign body of other part of head, initial encounter; S00.83XA Contusion of other part of head, initial encounter; M25.521 Pain in right elbow
CPT/HCPCS: 96361; 93005; 85025; 80048; 36415; 85610; 80076; 85730; 70450 ×2; 72125; 70486; 76377; 73080; 96374; 99285; 80143; 80179; 82077; 12013; J7030